=== PATIENT | female | born 1945 | race Caucasian/White ===

== ENCOUNTER 2017-12-14 20:43 | Inpatient (IN) | payer MEDICARE, OTHER ==
[2017-12-14] MEDS ORDERED: Ondansetron 4 MG/2 ML SDV IVPUSH ONE (21:07)
[2017-12-14] MEDS ORDERED: Sodium Chloride 0.9% 10 ML Syringe FLUSH PRN (21:07)
[2017-12-14] MEDS ORDERED: Sodium Chloride 0.9% 2.5 ML Syringe FLUSH PRN (21:07)
[2017-12-14] MEDS ORDERED: Sodium Chloride 0.9% 500 ML IV SCH (21:15)
--- NOTE | 2017-12-14 21:23 | EDM.PDOC ---
<Mallika Castro - Last Filed: 12/14/17 22:08> ED HPI GENERAL MEDICAL PROBLEM - General Chief Complaint: Abdominal Pain Stated Complaint: PAIN IN LOWER RT SIDE Time Seen by Provider: 12/14/17 21:19 Source of Information: Reports: Patient History Limitations: Reports: No Limitations - History of Present Illness INITIAL COMMENTS - FREE TEXT/NARRATIVE: HISTORY AND PHYSICAL: History of present illness: Felisha is a 72-year-old female here with complaint of right lower abdominal pain that started this morning. She states that the pain has progressively gotten worse through the day and rates it as 6 out of 10 just sitting here but movements such as the bumps on the car ride to ED made it worse. Patient states she's felt chills today on and off. She feels nauseous but denies any vomiting, diarrhea, chest pain, shortness of breath. She reports that 2 years ago she had a "leaking appendix "and was admitted for IV antibiotics and never had an appendectomy. She denies any significant past medical history other than hypothyroidism. Review of systems: As per history of present illness and below otherwise all systems reviewed and negative. Past medical history: As per history of present illness and as reviewed below otherwise noncontributory. Surgical history: As per history of present illness and as reviewed below otherwise noncontributory. Social history: No reported history of drug or alcohol abuse. Family history: As per history of present illness and as reviewed below otherwise noncontributory. Physical exam: General: Patient sitting comfortably in no acute distress and nontoxic appearing HEENT: Atraumatic, normocephalic, pupils reactive, negative for conjunctival pallor or scleral icterus, mucous membranes moist, throat clear, neck supple, nontender, trachea midline. No meningeal signs. Lungs: Clear to auscultation, breath sounds equal bilaterally, chest nontender. Heart: S1S2, regular, negative for clicks, rubs, or overt murmur. Abdomen: Significant tenderness to palpation of periumbilical, epigastrum, and right lower quadrant. No rigidity noted. Soft, nondistended. Negative for costovertebral tenderness. Pelvis: Stable nontender. 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: Deferred. Rectal: Deferred. Extremities: Atraumatic, negative for cords or calf pain. Neurovascular unremarkable. Neuro: Awake, alert, oriented. Cranial nerves II through XII unremarkable. Cerebellum unremarkable. Motor and sensory unremarkable throughout. Exam nonfocal. Notes: Diagnostics: CBC, CMP, lipase, UA, urine culture, CT abdomen and pelvis with contrast Therapeutics: 500 mL normal saline IV 4 mg Zofran IV Prescriptions: Impression: Right lower quadrant pain Plan: Signed out to Dr. Man at 2200. Definitive disposition and diagnosis as appropriate pending reevaluation and review of above. Right Lower Abdomen Pain Score (Numeric/FACES): 7 - Related Data Allergies Allergy/AdvReac Type Severity Reaction Status Date / Time pistachio nut Allergy Airway Verified 12/14/17 21:03 Tightness Home Meds: Home Meds Levothyroxine 75 mcg PO ACBREAKFAST 07/19/15 [History] Past Medical History Other HEENT History: wears glasses Cardiovascular History: Reports: Blood Clots/VTE/DVT Other Cardiovascular History: DVT x2, left leg about 2 years ago, off blood thiner now Respiratory History: Reports: None Gastrointestinal History: Reports: GERD, Hiatal Hernia, Other (See Below) Other Gastrointestinal History: recent appendicitis, 3 months ago treated with antibiotics, ok now 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 History: Reports: 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: Musculoskeletal History: Reports: Fracture Neurological History: Reports: Migraines Psychiatric History: Reports: None Endocrine/Metabolic History: Reports: Hypothyroidism, Obesity/BMI 30+ Hematologic History: Reports: Other (See Below) Other Hematologic History: clotting disorder, no anticoagulants x 2 years Immunologic History: Reports: None Oncologic (Cancer) History: Reports: None Dermatologic History: Reports: None - Infectious Disease History Infectious Disease History: Reports: Chicken Pox, Measles, Mumps - Past Surgical History Head Surgeries/Procedures: Reports: None HEENT Surgical History: Reports: None Cardiovascular Surgical History: Reports: Other (See Below) Respiratory Surgical History: Reports: None Female Surgical History: Reports: None Endocrine Surgical History: Reports: None Neurological Surgical History: Reports: None Musculoskeletal Surgical History: Reports: Other (See Below) Oncologic Surgical History: Reports: None Dermatological Surgical History: Reports: None Social & Family History - Family History Family Medical History: Noncontributory Cardiac: Reports: Heart Failure, [place] Endocrine/Metabolic: Reports: Diabetes, Type I Oncologic: Reports: Colon, Lung - Tobacco Use Smoking Status *Q: Never Smoker Second Hand Smoke Exposure: No - Caffeine Use Caffeine Use: Reports: None - Recreational Drug Use Recreational Drug Use: No ED ROS GENERAL - Review of Systems Review Of Systems: ROS reveals no pertinent complaints other than HPI. ED EXAM, GI/ABD - Physical Exam Exam: See Below (see dictation) Course - Vital Signs Last Recorded V/S: Last Vital Signs Temp 36.6 C 12/14/17 21:02 Pulse 93 12/14/17 22:36 Resp 18 12/14/17 22:36 BP 122/66 12/14/17 22:36 Pulse Ox 95 12/14/17 22:36 - Orders/Labs/Meds Orders: Active Orders 24 hr Category Date Time Status Abdomen Pelvis w Cont [CT] Stat Exams 12/14/17 21:16 Taken CULTURE BLOOD [BC] Stat Lab 12/14/17 21:20 Received CULTURE BLOOD [BC] Stat Lab 12/14/17 21:30 Received CULTURE URINE [RM] Stat Lab 12/14/17 22:05 Received Lactated Ringers @ 125 MLS/HR(1,000ml) Med 12/14/17 23:45 Ordered Lactated Ringers [Ringers, Lactated] 1,000 ml IV ASDIRECTED Piperacillin/Tazobactam [Piperacil-Tazobact] 3.375 gm Med 12/14/17 23:46 Ordered Sodium Chloride 0.9% [Normal Saline] 50 ml IV ONETIME Sodium Chloride 0.9% [Normal Saline] 500 ml Med 12/14/17 21:15 Active IV STAT Sodium Chloride 0.9% [Saline Flush] Med 12/14/17 21:07 Active 10 ml FLUSH ASDIRECTED PRN Sodium Chloride 0.9% [Saline Flush] Med 12/14/17 21:07 Active 2.5 ml FLUSH ASDIRECTED PRN Blood Culture x2 Reflex Set [OM.PC] Stat Oth 12/14/17 21:07 Ordered Saline Lock Insert [OM.PC] Stat Oth 12/14/17 21:07 Ordered Medication Orders Sodium Chloride (Normal Saline) 500 mls @ 999 mls/hr IV STAT AISHA Last Admin: 12/14/17 21:50 Dose: 999 mls/hr Lactated Ringer's (Ringers, Lactated) 1,000 mls @ 125 mls/hr IV ASDIRECTED AISHA Piperacillin Sod/Tazobactam (Sod 3.375 gm/ Sodium Chloride) 50 mls @ 100 mls/ hr IV ONETIME ONE Stop: 12/15/17 00:15 Sodium Chloride (Saline Flush) 10 ml FLUSH ASDIRECTED PRN PRN Reason: Keep Vein Open Sodium Chloride (Saline Flush) 2.5 ml FLUSH ASDIRECTED PRN PRN Reason: Keep Vein Open Labs: Laboratory Tests 12/14/17 12/14/17 12/14/17 Range/Units 21:20 21:20 22:05 WBC 10.51 (4.0-11.0) K/uL RBC 4.76 (4.30-5.90) M/uL Hgb 14.9 (12.0-16.0) g/dL Hct 43.1 (36.0-46.0) % MCV 90.5 (80.0-98.0) fL MCH 31.3 (27.0-32.0) pg MCHC 34.6 (31.0-37.0) g/dL RDW Std Deviation 42.9 (28.0-62.0) fl RDW Coeff of Rubi 13 (11.0-15.0) % Plt Count 201 (150-400) K/uL MPV 9.50 (7.40-12.00) fL Neut % (Auto) 87.0 H (48.0-80.0) % Lymph % (Auto) 6.4 L (16.0-40.0) % [place] % (Auto) 5.9 (0.0-15.0) % Eos % (Auto) 0.5 (0.0-7.0) % Baso % (Auto) 0.2 (0.0-1.5) % Neut # (Auto) 9.2 H (1.4-5.7) K/uL Lymph # (Auto) 0.7 (0.6-2.4) K/uL [place] # (Auto) 0.6 (0.0-0.8) K/uL Eos # (Auto) 0.1 (0.0-0.7) K/uL Baso # (Auto) 0.0 (0.0-0.1) K/uL Nucleated RBC % 0.0 /100WBC Nucleated RBCs # 0 K/uL Sodium 136 (136-145) mmol/L Potassium 3.8 (3.5-5.1) mmol/L Chloride 102 (98-107) mmol/L Carbon Dioxide 25.4 (21.0-32.0) mmol/L BUN 12 (7.0-18.0) mg/dL Creatinine 0.8 (0.6-1.0) mg/dL Est Cr Clr Drug Dosing 60.38 mL/min Estimated GFR (MDRD) > 60.0 ml/min Glucose 150 H (74-106) mg/dL Calcium 9.0 (8.5-10.1) mg/dL Total Bilirubin 1.1 H (0.2-1.0) mg/dL AST 14 L (15-37) IU/L ALT 17 (14-63) IU/L Alkaline Phosphatase 56 (46-116) U/L Total Protein 6.9 (6.4-8.2) g/dL Albumin 3.5 (3.4-5.0) g/dL Globulin 3.4 (2.0-3.5) g/dL Albumin/Globulin Ratio 1.0 L (1.3-2.8) Lipase 100 (73-393) U/L Urine Color YELLOW Urine Appearance CLEAR Urine pH 6.0 (5.0-8.0) Ur Specific [place] 1.025 (1.001-1.035) Urine Protein NEGATIVE (NEGATIVE) mg/dL Urine Glucose (UA) NEGATIVE (NEGATIVE) mg/dL Urine Ketones TRACE H (NEGATIVE) mg/dL Urine Occult Blood TRACE-INTACT (NEGATIVE) Urine Nitrite NEGATIVE (NEGATIVE) Urine Bilirubin NEGATIVE (NEGATIVE) Urine Urobilinogen 0.2 (<2.0) EU/dL Ur Leukocyte Esterase SMALL (NEGATIVE) Urine RBC NONE SEEN (0-2/HPF) Urine WBC 4-6 (0-5/HPF) Ur Epithelial Cells FEW (NONE-FEW) Urine Bacteria FEW (NEGATIVE) Urine Mucus MODERATE (NONE-MOD) Meds: Medications Generic Name Dose Route Start Last Admin Trade Name Freq PRN Reason Stop Dose Admin Sodium Chloride 500 mls @ 999 mls/hr 12/14/17 21:15 12/14/17 21:50 Normal Saline IV 999 mls/hr STAT AISHA Administration Lactated Ringer's 1,000 mls @ 125 mls/hr 12/14/17 23:45 Ringers, Lactated IV ASDIRECTED AISHA Piperacillin Sod/Tazobactam 50 mls @ 100 mls/hr 12/14/17 23:46 Sod 3.375 gm/ Sodium Chloride IV 12/15/17 00:15 ONETIME ONE Sodium Chloride 10 ml 12/14/17 21:07 Saline Flush FLUSH ASDIRECTED PRN Keep Vein Open Sodium Chloride 2.5 ml 12/14/17 21:07 Saline Flush FLUSH ASDIRECTED PRN Keep Vein Open Discontinued Medications Generic Name Dose Route Start Last Admin Trade Name Mikey PRN Reason Stop Dose Admin Iopamidol 100 ml 12/14/17 22:52 12/14/17 22:53 Isovue-370 (76%) IVPUSH 12/14/17 22:53 100 ml ONETIME ONE Administration Morphine Sulfate 4 mg 12/14/17 22:25 12/14/17 22:33 Morphine IVPUSH 12/14/17 22:26 4 mg ONETIME ONE Administration Ondansetron HCl 4 mg 12/14/17 21:07 12/14/17 21:50 Zofran IVPUSH 12/14/17 21:08 4 mg ONETIME ONE Administration Departure - Departure Time of Disposition: 22:10 Disposition: Refer to Observation Condition: Good Clinical Impression: Right lower quadrant abdominal pain Acute appendicitis Qualifiers: Acute appendicitis type: unspecified acute appendicitis type Qualified Code(s) : K35.80 - Unspecified acute appendicitis - Discharge Information Referrals: PCP,None [Primary Care Provider] - Forms: ED Department Discharge - My Orders Last 24 Hours: My Active Orders 12/14/17 23:45 Lactated Ringers @ 125 MLS/HR(1,000ml) Lactated Ringers [Ringers, Lactated] 1, 000 ml IV ASDIRECTED 12/14/17 23:46 Piperacillin/Tazobactam [Piperacil-Tazobact] 3.375 gm Sodium Chloride 0.9% [ Normal Saline] 50 ml IV ONETIME - Assessment/Plan Last 24 Hours: My Active Orders 12/14/17 23:45 Lactated Ringers @ 125 MLS/HR(1,000ml) Lactated Ringers [Ringers, Lactated] 1, 000 ml IV ASDIRECTED 12/14/17 23:46 Piperacillin/Tazobactam [Piperacil-Tazobact] 3.375 gm Sodium Chloride 0.9% [ Normal Saline] 50 ml IV ONETIME <Lary Man - Last Filed: 12/14/17 23:50> ED HPI GENERAL MEDICAL PROBLEM - History of Present Illness INITIAL COMMENTS - FREE TEXT/NARRATIVE: This is Dr. Man dictating an addendum note as I assumed care of this case. All labs have been reviewed and the CT scan report has been discussed with the patient and his significant other at bedside. The tele- radiologist has contacted me and confirms there is appendicitis without rupture or phlegmon. This case was discussed with Dr. Steward at 2340pm and she will come in to see the patient and discussed surgery. The patient reiterates that she has no significant medical problems. I will do her preop EKG and hang lactated Ringer' s at 1 25 mL per hour as maintenance fluid and a dose of Zosyn per Dr. Steward's request. I did give the patient some morphine for pain earlier and she is feeling better. I will continue to order any testing as requested by the surgeon for preop. Impression: Acute appendicitis ED ROS GENERAL - Review of Systems Review Of Systems: ROS reveals no pertinent complaints other than HPI. Departure - Departure Time of Disposition: 23:49 Condition: Good
[2017-12-14 22:00] LABS: CHLORIDE,CL 102 mmol/L (98-107); SODIUM,NA 136 mmol/L (136-145)
[2017-12-14] MEDS ORDERED: Morphine 2 MG/ML Syringe IVPUSH ONE (22:25)
[2017-12-14] MEDS ORDERED: Iopamidol 755 Mg/ML 100 ML Bottle IVPUSH ONE (22:52)
[2017-12-14] MEDS ORDERED: Piperacillin/Tazobactam 3.375 GM in Sodium Chloride 0.9% 50 ML IV ONE (23:46)
[2017-12-14] MEDS: Lactated Ringers 1,000 ML IV SCH (23:52)
[2017-12-15] MEDS ORDERED: Sodium Chloride 0.9% 10 ML Syringe FLUSH PRN (00:25)
[2017-12-15] MEDS ORDERED: diphenhydrAMINE 50 MG/ML SDV IVPUSH PRN (00:25)
[2017-12-15] MEDS ORDERED: Sodium Chloride 0.9% 2.5 ML Syringe FLUSH PRN (00:25)
[2017-12-15] MEDS ORDERED: HYDROmorphone 2 MG/ML SDV IVPUSH PRN (00:25)
[2017-12-15] MEDS ORDERED: Lactated Ringers 1,000 ML IV SCH (00:30)
--- NOTE | 2017-12-15 00:36 | PCM.HP ---
H&P History of Present Illness - General Date of Service: 12/15/17 Admit Problem/Dx: Admission Diagnosis/Problem Admission Diagnosis/Problem Acute appendicitis Source of Information: Patient History Limitations: Reports: No Limitations - History of Present Illness Initial Comments - Free Text/Narative: Patient is a 72 year old female who presents with RLQ pain. She had perforated appendicitis two years ago which was treated successfully with IV antibiotics. She was followed up with a colonoscopy which was normal other than diverticulosis. She was not offered an interval appendectomy. She developed lower abdominal pain similar to her previous appendicitis episode today. She presented right away to the ER because she was concerned this was appendicitis again. Her WBC was 10 but she had a left shift. Her CT abdomen showed a dilated appendix with a proximal appendicolith consistent with non-ruptured acute appendicitis. She has otherwise been healthy. Right Lower Abdomen Pain Score (Numeric/FACES): 7 - Related Data Allergies/Adverse Reactions: Allergies Allergy/AdvReac Type Severity Reaction Status Date / Time pistachio nut Allergy Airway Verified 12/14/17 21:03 Tightness Home Medications: Home Meds Levothyroxine 75 mcg PO ACBREAKFAST 07/19/15 [History] Past Medical History Other HEENT History: wears glasses Cardiovascular History: Reports: Blood Clots/VTE/DVT Other Cardiovascular History: DVT x2, left leg about 2 years ago, off blood thiner now Respiratory History: Reports: None Gastrointestinal History: Reports: GERD, Hiatal Hernia, Other (See Below) Other Gastrointestinal History: recent appendicitis, 3 months ago treated with antibiotics, ok now 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: Musculoskeletal History: Reports: Fracture Neurological History: Reports: Migraines Psychiatric History: Reports: None Endocrine/Metabolic History: Reports: Hypothyroidism, Obesity/BMI 30+ Hematologic History: Reports: Other (See Below) Other Hematologic History: clotting disorder, no anticoagulants x 2 years Immunologic History: Reports: None Oncologic (Cancer) History: Reports: None Dermatologic History: Reports: None - Infectious Disease History Infectious Disease History: Reports: Chicken Pox, Measles, Mumps - Past Surgical History Head Surgeries/Procedures: Reports: None HEENT Surgical History: Reports: None Cardiovascular Surgical History: Reports: Other (See Below) Respiratory Surgical History: Reports: None Female Surgical History: Reports: None Endocrine Surgical History: Reports: None Neurological Surgical History: Reports: None Musculoskeletal Surgical History: Reports: Other (See Below) Oncologic Surgical History: Reports: None Dermatological Surgical History: Reports: None Social & Family History - Family History Family Medical History: Noncontributory Cardiac: Reports: Heart Failure, [place] Endocrine/Metabolic: Reports: Diabetes, Type I Oncologic: Reports: Colon, Lung - Tobacco Use Smoking Status *Q: Never Smoker Second Hand Smoke Exposure: No - Caffeine Use Caffeine Use: Reports: None - Recreational Drug Use Recreational Drug Use: No H&P Review of Systems - Review of Systems: Review Of Systems: ROS reveals no pertinent complaints other than HPI. Exam - Exam Exam: See Below - Vital Signs Vital Signs: Last Vital Signs Temp 36.6 C 12/14/17 21:02 Pulse 93 12/14/17 22:36 Resp 18 12/14/17 22:36 BP 122/66 12/14/17 22:36 Pulse Ox 95 12/14/17 22:36 Weight: 94.7 kg - Exam General: Alert, Oriented HEENT: Conjunctiva Clear, Mucosa Moist & [place], Posterior Pharynx Clear Neck: Trachea Midline Lungs: Clear to Auscultation, Normal Respiratory Effort Cardiovascular: Regular Rate, Systolic Murmur GI/Abdominal Exam: Soft, Distended, Guarding (RLQ), Rebound (Lower abdomen ), Tender (lower abdomen ). No: Rigid - Patient Data Lab Results Last 24 hrs: Laboratory Results - last 24 hr 12/14/17 12/14/17 12/14/17 Range/Units 21:20 21:20 22:05 WBC 10.51 (4.0-11.0) K/uL RBC 4.76 (4.30-5.90) M/uL Hgb 14.9 (12.0-16.0) g/dL Hct 43.1 (36.0-46.0) % MCV 90.5 (80.0-98.0) fL MCH 31.3 (27.0-32.0) pg MCHC 34.6 (31.0-37.0) g/dL RDW Std Deviation 42.9 (28.0-62.0) fl RDW Coeff of Rubi 13 (11.0-15.0) % Plt Count 201 (150-400) K/uL MPV 9.50 (7.40-12.00) fL Neut % (Auto) 87.0 H (48.0-80.0) % Lymph % (Auto) 6.4 L (16.0-40.0) % [place] % (Auto) 5.9 (0.0-15.0) % Eos % (Auto) 0.5 (0.0-7.0) % Baso % (Auto) 0.2 (0.0-1.5) % Neut # (Auto) 9.2 H (1.4-5.7) K/uL Lymph # (Auto) 0.7 (0.6-2.4) K/uL [place] # (Auto) 0.6 (0.0-0.8) K/uL Eos # (Auto) 0.1 (0.0-0.7) K/uL Baso # (Auto) 0.0 (0.0-0.1) K/uL Nucleated RBC % 0.0 /100WBC Nucleated RBCs # 0 K/uL Sodium 136 (136-145) mmol/L Potassium 3.8 (3.5-5.1) mmol/L Chloride 102 (98-107) mmol/L Carbon Dioxide 25.4 (21.0-32.0) mmol/L BUN 12 (7.0-18.0) mg/dL Creatinine 0.8 (0.6-1.0) mg/dL Est Cr Clr Drug Dosing 60.38 mL/min Estimated GFR (MDRD) > 60.0 ml/min Glucose 150 H (74-106) mg/dL Calcium 9.0 (8.5-10.1) mg/dL Total Bilirubin 1.1 H (0.2-1.0) mg/dL AST 14 L (15-37) IU/L ALT 17 (14-63) IU/L Alkaline Phosphatase 56 (46-116) U/L Total Protein 6.9 (6.4-8.2) g/dL Albumin 3.5 (3.4-5.0) g/dL Globulin 3.4 (2.0-3.5) g/dL Albumin/Globulin Ratio 1.0 L (1.3-2.8) Lipase 100 (73-393) U/L Urine Color YELLOW Urine Appearance CLEAR Urine pH 6.0 (5.0-8.0) Ur Specific [place] 1.025 (1.001-1.035) Urine Protein NEGATIVE (NEGATIVE) mg/dL Urine Glucose (UA) NEGATIVE (NEGATIVE) mg/dL Urine Ketones TRACE H (NEGATIVE) mg/dL Urine Occult Blood TRACE-INTACT (NEGATIVE) Urine Nitrite NEGATIVE (NEGATIVE) Urine Bilirubin NEGATIVE (NEGATIVE) Urine Urobilinogen 0.2 (<2.0) EU/dL Ur Leukocyte Esterase SMALL (NEGATIVE) Urine RBC NONE SEEN (0-2/HPF) Urine WBC 4-6 (0-5/HPF) Ur Epithelial Cells FEW (NONE-FEW) Urine Bacteria FEW (NEGATIVE) Urine Mucus MODERATE (NONE-MOD) Result Diagrams: 12/14/17 21:20 12/14/17 21:20 - Problem List (1) Acute appendicitis SNOMED Code(s): 96650205 ICD Code: K35.80 - UNSPECIFIED ACUTE APPENDICITIS Status: Acute Current Visit: Yes Qualifiers: Acute appendicitis type: unspecified acute appendicitis type Qualified Code (s): K35.80 - Unspecified acute appendicitis Problem List Initiated/Reviewed/Updated: Yes Orders Last 24hrs: Active Orders 24 hr Category Date Time Status Patient Status [ADT] Routine ADT 12/15/17 00:25 Ordered EKG Documentation Completion [RC] STAT Care 12/14/17 23:51 Inactive EKG Documentation Completion [RC] STAT Care 12/14/17 23:56 Active Oxygen Therapy [RC] PRN Care 12/15/17 00:25 Ordered Up ad Hayley [RC] ASDIRECTED Care 12/15/17 00:25 Ordered Vital Signs [RC] PER UNIT ROUTINE Care 12/15/17 00:25 Ordered Nothing Per Oral Diet [DIET] Diet 12/15/17 Breakfast Ordered Abdomen Pelvis w Cont [CT] Stat Exams 12/14/17 21:16 Taken BASIC METABOLIC PANEL,BMP [CHEM] AM Lab 12/15/17 05:11 Ordered CBC W/O DIFF,HEMOGRAM [HEME] AM Lab 12/15/17 05:11 Ordered CULTURE BLOOD [BC] Stat Lab 12/14/17 21:20 Received CULTURE BLOOD [BC] Stat Lab 12/14/17 21:30 Received CULTURE URINE [RM] Stat Lab 12/14/17 22:05 Received HYDROmorphone [Dilaudid] Med 12/15/17 00:25 Ordered 0.5 mg IVPUSH Q1H PRN Lactated Ringers @ 125 MLS/HR(1000ml) Med 12/15/17 00:30 Ordered Lactated Ringers [Ringers, Lactated] 1,000 ml IV ASDIRECTED Lactated Ringers [Ringers, Lactated] 1,000 ml Med 12/14/17 23:45 Active IV ASDIRECTED Ondansetron [Zofran] Med 12/15/17 00:25 Ordered 4 mg IVPUSH Q6H PRN Piperacillin/Tazobactam [Piperacil-Tazobact] 3.375 gm Med 12/15/17 08:00 Ordered Sodium Chloride 0.9% [Normal Saline] 50 ml IV Q8H Sodium Chloride 0.9% [Normal Saline] 500 ml Med 12/14/17 21:15 Active IV STAT Sodium Chloride 0.9% [Saline Flush] Med 12/14/17 21:07 Active 10 ml FLUSH ASDIRECTED PRN Sodium Chloride 0.9% [Saline Flush] Med 12/15/17 00:25 Ordered 10 ml FLUSH ASDIRECTED PRN Sodium Chloride 0.9% [Saline Flush] Med 12/14/17 21:07 Active 2.5 ml FLUSH ASDIRECTED PRN Sodium Chloride 0.9% [Saline Flush] Med 12/15/17 00:25 Ordered 2.5 ml FLUSH ASDIRECTED PRN diphenhydrAMINE [Benadryl] Med 12/15/17 00:25 Ordered 25 mg IVPUSH Q4H PRN Blood Culture x2 Reflex Set [OM.PC] Stat Ot 12/14/17 21:07 Ordered Peripheral IV Insertion Adult [OM.PC] Urgent Oth 12/15/17 00:25 Ordered Saline Lock Insert [OM.PC] Stat Ot 12/14/17 21:07 Ordered Resuscitation Status Routine Resus Stat 12/15/17 00:25 Ordered Medication Orders Diphenhydramine HCl (Benadryl) 25 mg IVPUSH Q4H PRN PRN Reason: Itching Hydromorphone HCl (Dilaudid) 0.5 mg IVPUSH Q1H PRN PRN Reason: Pain (severe 7-10) Sodium Chloride (Normal Saline) 500 mls @ 999 mls/hr IV STAT AISHA Last Admin: 12/14/17 21:50 Dose: 999 mls/hr Lactated Ringer's (Ringers, Lactated) 1,000 mls @ 125 mls/hr IV ASDIRECTED [facility] Last Admin: 12/14/17 23:52 Dose: 125 mls/hr Lactated Ringer's (Ringers, Lactated) 1,000 mls @ 125 mls/hr IV ASDIRECTED [facility] Piperacillin Sod/Tazobactam (Sod 3.375 gm/ Sodium Chloride) 50 mls @ 100 mls/ hr IV Q8H AISHA Ondansetron HCl (Zofran) 4 mg IVPUSH Q6H PRN PRN Reason: Nausea/Vomiting Sodium Chloride (Saline Flush) 10 ml FLUSH ASDIRECTED PRN PRN Reason: Keep Vein Open Sodium Chloride (Saline Flush) 2.5 ml FLUSH ASDIRECTED PRN PRN Reason: Keep Vein Open Sodium Chloride (Saline Flush) 10 ml FLUSH ASDIRECTED PRN PRN Reason: Keep Vein Open Sodium Chloride (Saline Flush) 2.5 ml FLUSH ASDIRECTED PRN PRN Reason: Keep Vein Open Assessment/Plan Comment:: Will admit patient for IVF resucitation and IV antibiotics. Plan to take out her appendix right away in the morning. We discussed appendicitis and the treatment which at this time is now surgery. I warned her that given her previous episode of appendicitis she could have significant scarring that may make this a difficult case. I will attempt it laparoscopically but should I be unable to perform it safely I will convert to open. We discussed the risks including bleeding, infection, or damage to surrounding structures. She verbalized understanding and wishes to proceed.
[2017-12-15] MEDS: Piperacillin/Tazobactam 3.375 GM in Sodium Chloride 0.9% 50 ML IV SCH ×2 (07:30→18:20)
[2017-12-15] MEDS: Lactated Ringers 1,000 ML IV SCH ×2 (07:32→18:20)
--- NOTE | 2017-12-15 07:40 | PCM.SN ---
- Free Text/Narrative Note: Patient remained stable overnight. Subjectively, she feels like her abdominal pain is slightly improved. She has been recieving IV pain medications. Vitals are stable. On physical exam she is still extremely tender in the lower abdomen with rebound. She also feels slightly distended. Will take her for a lap possible open appendectomy this morning.
[2017-12-15] MEDS ORDERED: Bupivacaine 0.5% 30 ML SDV ONE (07:43)
[2017-12-15] MEDS ORDERED: ceFAZolin 1 GM Vial ONE (07:43)
--- NOTE | 2017-12-15 08:02 | PCM.PREANE ---
Preanesthetic Assessment - Procedure Proposed Procedure: appendectomy - laparoscopic vs open - Anesthesia/Transfusion/Family Hx Anesthesia History: Prior Anesthesia Without Reaction Family History of Anesthesia Reaction: No Transfusion History: No Prior Transfusion(s) Intubation History: Unknown - Review of Systems General: Other (right side abdominal pain) Pulmonary: No Symptoms Cardiovascular: No Symptoms Gastrointestinal: Abdominal Pain, Nausea (last pm but improved with Zofran) Neurological: No Symptoms Other: Reports: Thyroid Problems (hypothyroid on synthroid) - Physical Assessment NPO Status Date: 12/14/17 NPO Status Time: 16:00 O2 Sat by Pulse Oximetry: 90 Respiratory Rate: 15 Vital Signs: Last Vital Signs Temp 99.2 F 12/15/17 05:00 Pulse 87 12/15/17 05:00 Resp 15 12/15/17 05:00 BP 109/55 L 12/15/17 06:25 Pulse Ox 90 L 12/15/17 05:00 Height: 5 ft 5 in Weight: 195 lb ASA Class: 2E Mental Status: Alert & Oriented x3 Airway Class: Mallampati = 1 Dentition: Reports: Normal Dentition Thyro-Mental Finger Breadths: 2 Mouth Opening Finger Breadths: 3 ROM/Head Extension: Full Lungs: Clear to Auscultation, Normal Respiratory Effort Cardiovascular: Regular Rhythm, No Murmurs, Tachycardia - Lab Values: Laboratory Last Values WBC 10.51 K/uL (4.0-11.0) 12/14/17 21:20 RBC 4.76 M/uL (4.30-5.90) 12/14/17 21:20 Hgb 14.9 g/dL (12.0-16.0) 12/14/17 21:20 Hct 43.1 % (36.0-46.0) 12/14/17 21:20 MCV 90.5 fL (80.0-98.0) 12/14/17 21:20 MCH 31.3 pg (27.0-32.0) 12/14/17 21:20 MCHC 34.6 g/dL (31.0-37.0) 12/14/17 21:20 RDW Std Deviation 42.9 fl (28.0-62.0) 12/14/17 21:20 RDW Coeff of Rubi 13 % (11.0-15.0) 12/14/17 21:20 Plt Count 201 K/uL (150-400) 12/14/17 21:20 MPV 9.50 fL (7.40-12.00) 12/14/17 21:20 Neut % (Auto) 87.0 % (48.0-80.0) H 12/14/17 21:20 Lymph % (Auto) 6.4 % (16.0-40.0) L 12/14/17 21:20 Swisher % (Auto) 5.9 % (0.0-15.0) 12/14/17 21:20 Eos % (Auto) 0.5 % (0.0-7.0) 12/14/17 21:20 Baso % (Auto) 0.2 % (0.0-1.5) 12/14/17 21:20 Neut # (Auto) 9.2 K/uL (1.4-5.7) H 12/14/17 21:20 Lymph # (Auto) 0.7 K/uL (0.6-2.4) 12/14/17 21:20 Swisher # (Auto) 0.6 K/uL (0.0-0.8) 12/14/17 21:20 Eos # (Auto) 0.1 K/uL (0.0-0.7) 12/14/17 21:20 Baso # (Auto) 0.0 K/uL (0.0-0.1) 12/14/17 21:20 Nucleated RBC % 0.0 /100WBC 12/14/17 21:20 Nucleated RBCs # 0 K/uL 12/14/17 21:20 Sodium 136 mmol/L (136-145) 12/14/17 21:20 Potassium 3.8 mmol/L (3.5-5.1) 12/14/17 21:20 Chloride 102 mmol/L (98-107) 12/14/17 21:20 Carbon Dioxide 25.4 mmol/L (21.0-32.0) 12/14/17 21:20 BUN 12 mg/dL (7.0-18.0) 12/14/17 21:20 Creatinine 0.8 mg/dL (0.6-1.0) 12/14/17 21:20 Est Cr Clr Drug Dosing 60.38 mL/min 09/20/18 21:20 Estimated GFR (MDRD) > 60.0 ml/min 12/14/17 21:20 Glucose 150 mg/dL (74-106) H 12/14/17 21:20 Calcium 9.0 mg/dL (8.5-10.1) 12/14/17 21:20 Total Bilirubin 1.1 mg/dL (0.2-1.0) H 12/14/17 21:20 AST 14 IU/L (15-37) L 12/14/17 21:20 ALT 17 IU/L (14-63) 12/14/17 21:20 Alkaline Phosphatase 56 U/L (46-116) 12/14/17 21:20 Total Protein 6.9 g/dL (6.4-8.2) 12/14/17 21:20 Albumin 3.5 g/dL (3.4-5.0) 12/14/17 21:20 Globulin 3.4 g/dL (2.0-3.5) 12/14/17 21:20 Albumin/Globulin Ratio 1.0 (1.3-2.8) L 12/14/17 21:20 Lipase 100 U/L (73-393) 12/14/17 21:20 Urine Color YELLOW 12/14/17 22:05 Urine Appearance CLEAR 12/14/17 22:05 Urine pH 6.0 (5.0-8.0) 12/14/17 22:05 Ur Specific Amber 1.025 (1.001-1.035) 12/14/17 22:05 Urine Protein NEGATIVE mg/dL (NEGATIVE) 12/14/17 22:05 Urine Glucose (UA) NEGATIVE mg/dL (NEGATIVE) 12/14/17 22:05 Urine Ketones TRACE mg/dL (NEGATIVE) H 12/14/17 22:05 Urine Occult Blood TRACE-INTACT (NEGATIVE) 12/14/17 22:05 Urine Nitrite NEGATIVE (NEGATIVE) 12/14/17 22:05 Urine Bilirubin NEGATIVE (NEGATIVE) 12/14/17 22:05 Urine Urobilinogen 0.2 EU/dL (<2.0) 12/14/17 22:05 Ur Leukocyte Esterase SMALL (NEGATIVE) 12/14/17 22:05 Urine RBC NONE SEEN (0-2/HPF) 12/14/17 22:05 Urine WBC 4-6 (0-5/HPF) 12/14/17 22:05 Ur Epithelial Cells FEW (NONE-FEW) 12/14/17 22:05 Urine Bacteria FEW (NEGATIVE) 12/14/17 22:05 Urine Mucus MODERATE (NONE-MOD) 12/14/17 22:05 - Allergies Allergies/Adverse Reactions: Allergies Allergy/AdvReac Type Severity Reaction Status Date / Time pistachio nut Allergy Airway Verified 12/14/17 21:03 Tightness - Blood Blood Available: No Product(s) Available: None - Anesthesia Plan Pre-Op Medication Ordered: None - Acknowledgements Anesthesia Type Planned: General Anesthesia Pt an Appropriate Candidate for the Planned Anesthesia: Yes Alternatives and Risks of Anesthesia Discussed w Pt/Guardian: Yes Pt/Guardian Understands and Agrees with Anesthesia Plan: Yes Additional Comments: present PreAnesthesia Questionnaire HEENT History: Reports: Impaired Vision Other HEENT History: wears glasses Cardiovascular History: Reports: Blood Clots/VTE/DVT Other Cardiovascular History: DVT x2, left leg about 2 years ago, off blood thiner now Respiratory History: Reports: None Gastrointestinal History: Reports: GERD, Hiatal Hernia, Other (See Below) Other Gastrointestinal History: recent appendicitis, 3 months ago treated with antibiotics, ok now 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 History: Reports: None 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 [employer]ENDER History: Reports: Musculoskeletal History: Reports: Fracture Neurological History: Reports: Migraines Psychiatric History: Reports: None Endocrine/Metabolic History: Reports: Hypothyroidism, Obesity/BMI 30+ Hematologic History: Reports: Other (See Below) Other Hematologic History: clotting disorder, no anticoagulants x 2 years Immunologic History: Reports: None Oncologic (Cancer) History: Reports: None Dermatologic History: Reports: None - Infectious Disease History Infectious Disease History: Reports: Chicken Pox, Measles, Mumps - Past Surgical History Head Surgeries/Procedures: Reports: None HEENT Surgical History: Reports: None Cardiovascular Surgical History: Reports: Other (See Below) Respiratory Surgical History: Reports: None Female Surgical History: Reports: None Endocrine Surgical History: Reports: None Neurological Surgical History: Reports: None Musculoskeletal Surgical History: Reports: Other (See Below) Oncologic Surgical History: Reports: None Dermatological Surgical History: Reports: None - SUBSTANCE USE Smoking Status *Q: Never Smoker Tobacco Use Within Last Twelve Months: No Second Hand Smoke Exposure: No Recreational Drug Use History: No - HOME MEDS Home Medications: Home Meds Levothyroxine 75 mcg PO ACBREAKFAST 04/24/16 [History] - CURRENT (IN HOUSE) MEDS Current Meds: Current Medications Diphenhydramine HCl (Benadryl) 25 mg IVPUSH Q4H PRN PRN Reason: Itching Hydromorphone HCl (Dilaudid) 0.5 mg IVPUSH Q1H PRN PRN Reason: Pain (severe 7-10) Last Admin: 12/15/17 06:33 Dose: 0.5 mg Sodium Chloride (Normal Saline) 500 mls @ 999 mls/hr IV STAT AISHA Last Admin: 12/14/17 21:50 Dose: 999 mls/hr Lactated Ringer's (Ringers, Lactated) 1,000 mls @ 125 mls/hr IV ASDIRECTED AISHA Last Admin: 12/15/17 07:32 Dose: 125 mls/hr Lactated Ringer's (Ringers, Lactated) 1,000 mls @ 125 mls/hr IV ASDIRECTED AISHA Piperacillin Sod/Tazobactam (Sod 3.375 gm/ Sodium Chloride) 50 mls @ 100 mls/ hr IV Q8H AISHA Last Admin: 12/15/17 07:30 Dose: 100 mls/hr Ondansetron HCl (Zofran) 4 mg IVPUSH Q6H PRN PRN Reason: Nausea/Vomiting Sodium Chloride (Saline Flush) 10 ml FLUSH ASDIRECTED PRN PRN Reason: Keep Vein Open Sodium Chloride (Saline Flush) 2.5 ml FLUSH ASDIRECTED PRN PRN Reason: Keep Vein Open Sodium Chloride (Saline Flush) 10 ml FLUSH ASDIRECTED PRN PRN Reason: Keep Vein Open Sodium Chloride (Saline Flush) 2.5 ml FLUSH ASDIRECTED PRN PRN Reason: Keep Vein Open Discontinued Medications Bupivacaine HCl (Marcaine 0.5%) Confirm Administered Dose 30 ml .ROUTE .STK-MED ONE Stop: 12/15/17 07:44 Cefazolin Sodium (Ancef) Confirm Administered Dose 1 gm .ROUTE .STK-MED ONE Stop: 12/15/17 07:44 Piperacillin Sod/Tazobactam (Sod 3.375 gm/ Sodium Chloride) 50 mls @ 100 mls/ hr IV ONETIME ONE Stop: 12/15/17 00:15 Last Admin: 12/14/17 23:53 Dose: 100 mls/hr Iopamidol (Isovue-370 (76%)) 100 ml IVPUSH ONETIME ONE Stop: 12/14/17 22:53 Last Admin: 12/14/17 22:53 Dose: 100 ml Morphine Sulfate (Morphine) 4 mg IVPUSH ONETIME ONE Stop: 12/14/17 22:26 Last Admin: 12/14/17 22:33 Dose: 4 mg Ondansetron HCl (Zofran) 4 mg IVPUSH ONETIME ONE Stop: 12/14/17 21:08 Last Admin: 12/14/17 21:50 Dose: 4 mg
[2017-12-15] MEDS ORDERED: Propofol 200 MG/20 ML SDV ONE (08:59)
[2017-12-15] MEDS ORDERED: Midazolam 1 MG/ML 2 ML SDV ONE (08:59)
[2017-12-15] MEDS ORDERED: fentaNYL 100 MCG/2 ML SDV ONE ×2 (08:59→10:50)
[2017-12-15] MEDS ORDERED: Succinylcholine 200 MG/10 ML MDV ONE (09:00)
[2017-12-15] MEDS ORDERED: Ondansetron 4 MG/2 ML SDV ONE (09:00)
[2017-12-15] MEDS ORDERED: Rocuronium 10 MG/ML 10 ML Syringe ONE (09:00)
[2017-12-15] MEDS ORDERED: Dexamethasone 4 MG/ML 5 ML MDV ONE (09:00)
[2017-12-15] MEDS ORDERED: Lidocaine 2% 5 ML SDV ONE (09:02)
[2017-12-15] MEDS ORDERED: Sugammadex Sodium 200 MG/2 ML VIAL ONE ×2 (09:31→12:19)
[2017-12-15] MEDS ORDERED: Phenylephrine/Normal Saline 100 MCG/ML 10 ML Syringe ONE (10:19)
[2017-12-15] MEDS ORDERED: Ketorolac 30 MG/ML SDV ONE (10:43)
[2017-12-15] MEDS ORDERED: HYDROmorphone 2 MG/ML SDV ONE (10:50)
--- NOTE | 2017-12-15 12:42 | PCM.OPNOTE ---
- General Post-Op/Procedure Note Date of Surgery/Procedure: 12/15/17 Operative Procedure(s): Laparoscopic possible open appendectomy Findings: Appendix that was necrosed off of the cecum and incased in a rind of thickened and inflamed french-appendicile and terminal ileal fat. There was some intra- abdominal adhesions in the RLQ. There was purulent peritonitis. Pre Op Diagnosis: Appendicitis Post-Op Diagnosis: Ruptured, necrotic appendicitis with purulent peritonitis Anesthesia Technique: General ET Tube Primary Surgeon: Janay Steward Secondary Surgeon: Roberto Ortiz Pathology: appendix Fluid Replacement, Intraop: 2,000 Output, Urine Amount: 200 EBL in mLs: 100 Surgical Drain/Tube Type: Sae Drain Condition: Fair
--- NOTE | 2017-12-15 12:57 | CT ---
EXAM DATE: 12/14/17 PATIENT'S AGE: 72 Patient: JULIENNE MENDIETA Facility: [place], [place] Site . Site : [id number] Study: CT Abdomen/Pelvis [id number]/[id number] 11:18:05 PM Ordering Physician: Doctor Pruitt Final Report: INDICATION: Right lower quadrant pain, nausea TECHNIQUE: CT abdomen and pelvis acquired with 100 cc Isovue 370 IV contrast. COMPARISON: July 19, 2015 FINDINGS: Lower chest: Unremarkable. Liver: Hepatic steatosis. Spleen: Unremarkable. Pancreas: Unremarkable. Gallbladder and bile ducts: Cholelithiasis. Adrenal glands: Unremarkable. Kidneys: Unremarkable. GI tract: The appendix measures up to 1.5 cm in diameter. There is periappendiceal fat stranding. No extraluminal air or abscess. There is and appendicoliths in the proximal portion of the appendix. Vascular structures: There is an infrarenal IVC filter. Mild atherosclerotic calcifications. Lymph nodes: Unremarkable. Miscellaneous: There is a small fat containing umbilical hernia. No free air or significant free fluid. Pelvic Organs: 2.4 centimeter calcified uterine fibroid. Bones: Unremarkable for age. IMPRESSION: Acute appendicitis without evidence for perforation or abscess formation. These findings were discussed with Dr. Man at 11:32 p.m. on December 14, 2017. Cholelithiasis. Hepatic steatosis. Small fat containing umbilical hernia. Calcified uterine fibroid. Infrarenal IVC filter in place. Please note that all CT scans at this facility use dose modulation, iterative reconstruction, and/or weight-based dosing when appropriate to reduce radiation dose to as low as reasonably achievable. Dictated by Yas Frey MD @ Dec 14 2017 11:33PM (Electronic Signature) Report Signed by Proxy. [facility]ATR[facility] CENTERBlake
[2017-12-15] MEDS ORDERED: Morphine PF 30 MG/30 ML PCA Vial IV STA (12:58)
[2017-12-15 13:43] LABS: CHLORIDE,CL 102 mmol/L (98-107); SODIUM,NA 135 mmol/L (136-145)
[2017-12-15] MEDS ORDERED: Magnesium Sulfate/Water 2 GM in Premix Bag 1 BAG IV ONE (14:30)
--- NOTE | 2017-12-15 16:08 | PCM.POSTAN ---
POST ANESTHESIA ASSESSMENT - MENTAL STATUS Mental Status: Alert, Oriented - VITAL SIGNS Pulse Rate: 80 SaO2: 97 Blood Pressure: 115/65 - RESPIRATORY Respiratory Status: Respiratory Rate WNL, Airway Patent, O2 Saturation Stable - CARDIOVASCULAR CV Status: Pulse Rate WNL, Blood Pressure Stable - GASTROINTESTINAL GI Status: No Symptoms - PAIN Pain Score: 0 - POST OP HYDRATION Hydration Status: Adequate & Stable
--- NOTE | 2017-12-15 16:25 | PCM.SURGPN ---
- General Info Date of Service: 12/15/17 Date of Surgery/Procedure: 12/15/17 POD#: 0 Functional Status: Reports: Pain Controlled, Other (Sore in RLQ but pain is overall better. Vitals have been stable in PACU. Just arrived at the ICU. NO need for pressors after case. NG with minimal out. Drain with serosanguinous output. ) - Review of Systems General: Reports: No Symptoms Cardiovascular: Reports: No Symptoms Gastrointestinal: Reports: No Symptoms 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: Reports: No Symptoms Musculoskeletal: Reports: No Symptoms Skin: Reports: No Symptoms - Patient Data Vitals - Most Recent: Last Vital Signs Temp 38 C 12/15/17 12:48 Pulse 80 12/15/17 16:08 Resp 11 L 12/15/17 16:03 BP 115/65 12/15/17 16:08 Pulse Ox 97 12/15/17 16:08 Weight - Most Recent: 88.451 kg I&O - Last 24 Hours: Intake & Output 12/15/17 12/15/17 12/15/17 06:59 14:59 22:59 Intake Total 2000 Output Total 200 Balance 1800 Lab Results Last 24 Hrs: Laboratory Results - last 24 hr 12/14/17 12/14/17 12/14/17 Range/Units 21:20 21:20 22:05 WBC 10.51 (4.0-11.0) K/uL RBC 4.76 (4.30-5.90) M/uL Hgb 14.9 (12.0-16.0) g/dL Hct 43.1 (36.0-46.0) % MCV 90.5 (80.0-98.0) fL MCH 31.3 (27.0-32.0) pg MCHC 34.6 (31.0-37.0) g/dL RDW Std Deviation 42.9 (28.0-62.0) fl RDW Coeff of Rubi 13 (11.0-15.0) % Plt Count 201 (150-400) K/uL MPV 9.50 (7.40-12.00) fL Neut % (Auto) 87.0 H (48.0-80.0) % Lymph % (Auto) 6.4 L (16.0-40.0) % [place] % (Auto) 5.9 (0.0-15.0) % Eos % (Auto) 0.5 (0.0-7.0) % Baso % (Auto) 0.2 (0.0-1.5) % Neut # (Auto) 9.2 H (1.4-5.7) K/uL Lymph # (Auto) 0.7 (0.6-2.4) K/uL [place] # (Auto) 0.6 (0.0-0.8) K/uL Eos # (Auto) 0.1 (0.0-0.7) K/uL Baso # (Auto) 0.0 (0.0-0.1) K/uL Nucleated RBC % 0.0 /100WBC Nucleated RBCs # 0 K/uL Sodium 136 (136-145) mmol/L Potassium 3.8 (3.5-5.1) mmol/L Chloride 102 (98-107) mmol/L Carbon Dioxide 25.4 (21.0-32.0) mmol/L BUN 12 (7.0-18.0) mg/dL Creatinine 0.8 (0.6-1.0) mg/dL Est Cr Clr Drug Dosing 60.38 mL/min Estimated GFR (MDRD) > 60.0 ml/min Glucose 150 H (74-106) mg/dL Calcium 9.0 (8.5-10.1) mg/dL Phosphorus (2.6-4.7) mg/dL Magnesium (1.8-2.4) mg/dL Total Bilirubin 1.1 H (0.2-1.0) mg/dL AST 14 L (15-37) IU/L ALT 17 (14-63) IU/L Alkaline Phosphatase 56 (46-116) U/L Total Protein 6.9 (6.4-8.2) g/dL Albumin 3.5 (3.4-5.0) g/dL Globulin 3.4 (2.0-3.5) g/dL Albumin/Globulin Ratio 1.0 L (1.3-2.8) Lipase 100 (73-393) U/L Urine Color YELLOW Urine Appearance CLEAR Urine pH 6.0 (5.0-8.0) Ur Specific [place] 1.025 (1.001-1.035) Urine Protein NEGATIVE (NEGATIVE) mg/dL Urine Glucose (UA) NEGATIVE (NEGATIVE) mg/dL Urine Ketones TRACE H (NEGATIVE) mg/dL Urine Occult Blood TRACE-INTACT (NEGATIVE) Urine Nitrite NEGATIVE (NEGATIVE) Urine Bilirubin NEGATIVE (NEGATIVE) Urine Urobilinogen 0.2 (<2.0) EU/dL Ur Leukocyte Esterase SMALL (NEGATIVE) Urine RBC NONE SEEN (0-2/HPF) Urine WBC 4-6 (0-5/HPF) Ur Epithelial Cells FEW (NONE-FEW) Urine Bacteria FEW (NEGATIVE) Urine Mucus MODERATE (NONE-MOD) 12/15/17 12/15/17 Range/Units 13:11 13:11 WBC 10.42 (4.0-11.0) K/uL RBC 4.52 (4.30-5.90) M/uL Hgb 14.1 (12.0-16.0) g/dL Hct 41.7 (36.0-46.0) % MCV 92.3 (80.0-98.0) fL MCH 31.2 (27.0-32.0) pg MCHC 33.8 (31.0-37.0) g/dL RDW Std Deviation 44.7 (28.0-62.0) fl RDW Coeff of Rubi 13 (11.0-15.0) % Plt Count 154 (150-400) K/uL MPV 9.60 (7.40-12.00) fL Neut % (Auto) 93.4 H (48.0-80.0) % Lymph % (Auto) 4.7 L (16.0-40.0) % [place] % (Auto) 1.7 (0.0-15.0) % Eos % (Auto) 0.1 (0.0-7.0) % Baso % (Auto) 0.1 (0.0-1.5) % Neut # (Auto) 9.7 H (1.4-5.7) K/uL Lymph # (Auto) 0.5 L (0.6-2.4) K/uL [place] # (Auto) 0.2 (0.0-0.8) K/uL Eos # (Auto) 0.0 (0.0-0.7) K/uL Baso # (Auto) 0.0 (0.0-0.1) K/uL Nucleated RBC % 0.0 /100WBC Nucleated RBCs # 0 K/uL Sodium 135 L (136-145) mmol/L Potassium 4.0 (3.5-5.1) mmol/L Chloride 102 (98-107) mmol/L Carbon Dioxide 25.8 (21.0-32.0) mmol/L BUN 9 (7.0-18.0) mg/dL Creatinine 0.8 (0.6-1.0) mg/dL Est Cr Clr Drug Dosing 58.04 mL/min Estimated GFR (MDRD) > 60.0 ml/min Glucose 150 H (74-106) mg/dL Calcium 8.5 (8.5-10.1) mg/dL Phosphorus 3.0 (2.6-4.7) mg/dL Magnesium 1.7 L (1.8-2.4) mg/dL Total Bilirubin (0.2-1.0) mg/dL AST (15-37) IU/L ALT (14-63) IU/L Alkaline Phosphatase (46-116) U/L Total Protein (6.4-8.2) g/dL Albumin (3.4-5.0) g/dL Globulin (2.0-3.5) g/dL Albumin/Globulin Ratio (1.3-2.8) Lipase (73-393) U/L Urine Color Urine Appearance Urine pH (5.0-8.0) Ur Specific [place] (1.001-1.035) Urine Protein (NEGATIVE) mg/dL Urine Glucose (UA) (NEGATIVE) mg/dL Urine Ketones (NEGATIVE) mg/dL Urine Occult Blood (NEGATIVE) Urine Nitrite (NEGATIVE) Urine Bilirubin (NEGATIVE) Urine Urobilinogen (<2.0) EU/dL Ur Leukocyte Esterase (NEGATIVE) Urine RBC (0-2/HPF) Urine WBC (0-5/HPF) Ur Epithelial Cells (NONE-FEW) Urine Bacteria (NEGATIVE) Urine Mucus (NONE-MOD) Med Orders - Current: Current Medications Cyclobenzaprine HCl (Flexeril) 5 mg PO BID AISHA Diphenhydramine HCl (Benadryl) 25 mg IVPUSH Q4H PRN PRN Reason: Itching Heparin Sodium (Porcine) (Heparin Sodium) 5,000 units SUBCUT Q12H AISHA Sodium Chloride (Normal Saline) 500 mls @ 999 mls/hr IV STAT AISHA Last Admin: 12/14/17 21:50 Dose: 999 mls/hr Lactated Ringer's (Ringers, Lactated) 1,000 mls @ 125 mls/hr IV ASDIRECTED [facility] Last Admin: 12/15/17 07:32 Dose: 125 mls/hr Lactated Ringer's (Ringers, Lactated) 1,000 mls @ 125 mls/hr IV ASDIRECTED [facility] Piperacillin Sod/Tazobactam (Sod 3.375 gm/ Sodium Chloride) 50 mls @ 100 mls/ hr IV Q8H [facility] Last Admin: 12/15/17 07:30 Dose: 100 mls/hr Ondansetron HCl (Zofran) 4 mg IVPUSH Q6H PRN PRN Reason: Nausea/Vomiting Pantoprazole Sodium (Protonix Iv) 40 mg IVPUSH DAILY [facility] Sodium Chloride (Saline Flush) 10 ml FLUSH ASDIRECTED PRN PRN Reason: Keep Vein Open Sodium Chloride (Saline Flush) 2.5 ml FLUSH ASDIRECTED PRN PRN Reason: Keep Vein Open Sodium Chloride (Saline Flush) 10 ml FLUSH ASDIRECTED PRN PRN Reason: Keep Vein Open Sodium Chloride (Saline Flush) 2.5 ml FLUSH ASDIRECTED PRN PRN Reason: Keep Vein Open Discontinued Medications Bupivacaine HCl (Marcaine 0.5%) Confirm Administered Dose 30 ml .ROUTE .STK-MED ONE Stop: 12/15/17 07:44 Cefazolin Sodium (Ancef) Confirm Administered Dose 1 gm .ROUTE .STK-MED ONE Stop: 12/15/17 07:44 Dexamethasone (Dexamethasone) Confirm Administered Dose 20 mg .ROUTE .STK-MED ONE Stop: 12/15/17 09:01 Fentanyl (Sublimaze) Confirm Administered Dose 100 mcg .ROUTE .STK-MED ONE Stop: 12/15/17 09:00 Fentanyl (Sublimaze) Confirm Administered Dose 100 mcg .ROUTE .STK-MED ONE Stop: 12/15/17 10:51 Hydromorphone HCl (Dilaudid) 0.5 mg IVPUSH Q1H PRN PRN Reason: Pain (severe 7-10) Last Admin: 12/15/17 06:33 Dose: 0.5 mg Hydromorphone HCl (Dilaudid) Confirm Administered Dose 2 mg .ROUTE .STK-MED ONE Stop: 12/15/17 10:51 Piperacillin Sod/Tazobactam (Sod 3.375 gm/ Sodium Chloride) 50 mls @ 100 mls/ hr IV ONETIME ONE Stop: 12/15/17 00:15 Last Admin: 12/14/17 23:53 Dose: 100 mls/hr Acetaminophen (Ofirmev) Confirm Administered Dose 100 mls @ as directed IV .STK- MED ONE Stop: 12/15/17 09:33 Magnesium Sulfate 2 gm/ Premix 50 mls @ 50 mls/hr IV ONETIME ONE Stop: 12/15/17 15:29 Iopamidol (Isovue-370 (76%)) 100 ml IVPUSH ONETIME ONE Stop: 12/14/17 22:53 Last Admin: 12/14/17 22:53 Dose: 100 ml Ketorolac Tromethamine (Toradol) Confirm Administered Dose 30 mg .ROUTE .STK- MED ONE Stop: 12/15/17 10:44 Lidocaine (Xylocaine-Mpf 2%) Confirm Administered Dose 5 ml .ROUTE .STK-MED ONE Stop: 12/15/17 09:03 Midazolam HCl (Versed 1 Mg/Ml) Confirm Administered Dose 2 mg .ROUTE .STK-MED ONE Stop: 12/15/17 09:00 Morphine Sulfate (Morphine) 4 mg IVPUSH ONETIME ONE Stop: 12/14/17 22:26 Last Admin: 12/14/17 22:33 Dose: 4 mg Morphine Sulfate (Morphine [employer] Director 30 Mg In 30 Ml) 30 mg IV NOW STA; Protocol Stop: 12/15/17 12:59 Last Admin: 12/15/17 13:26 Dose: 30 mg Ondansetron HCl (Zofran) 4 mg IVPUSH ONETIME ONE Stop: 12/14/17 21:08 Last Admin: 12/14/17 21:50 Dose: 4 mg Ondansetron HCl (Zofran) Confirm Administered Dose 4 mg .ROUTE .STK-MED ONE Stop: 12/15/17 09:01 Phenylephrine HCl (Phenylephrine In Ns 100 Mcg/Ml) Confirm Administered Dose 1 mg .ROUTE .STK-MED ONE Stop: 12/15/17 10:20 Propofol (Diprivan 20 Ml) Confirm Administered Dose 200 mg .ROUTE .STK-MED ONE Stop: 12/15/17 09:00 Rocuronium [place] (Zemuron) Confirm Administered Dose 100 mg .ROUTE .STK-MED ONE Stop: 12/15/17 09:01 Succinylcholine Chloride (Quelicin) Confirm Administered Dose 200 mg .ROUTE .STK -MED ONE Stop: 12/15/17 09:01 Sugammadex Sodium (Bridion) Confirm Administered Dose 200 mg .ROUTE .STK-MED ONE Stop: 12/15/17 09:32 Sugammadex Sodium (Bridion) Confirm Administered Dose 200 mg .ROUTE .STK-MED ONE Stop: 12/15/17 12:20 - Exam Wound/Incisions: Dressing Dry and Intact, Drainage (serosanguinous ) General: Alert, Oriented, Cooperative Neck: Supple Lungs: Normal Respiratory Effort Cardiovascular: Regular Rate GI/Abdominal Exam: Soft, Distended (mild), Tender (in RLQ but softer and no rebound or guarding ) Extremities: Normal Inspection Skin: Warm, Dry, Intact Neurological: No New Focal Deficit - Problem List & Annotations (1) Appendicitis with perforation SNOMED Code(s): 91261228 Code(s): K35.2 - ACUTE APPENDICITIS WITH GENERALIZED PERITONITIS Status: Acute Current Visit: Yes (2) Appendicitis, acute, with generalized peritonitis SNOMED Code(s): 60813037 Code(s): K35.2 - ACUTE APPENDICITIS WITH GENERALIZED PERITONITIS Status: Acute Current Visit: Yes - Problem List Review Problem List Initiated/Reviewed/Updated: Yes - My Orders Last 24 Hours: Active Orders 24 hr Category Date Time Status Patient Status [ADT] Routine ADT 12/15/17 12:44 Active EKG Documentation Completion [RC] STAT Care 12/14/17 23:51 Inactive EKG Documentation Completion [RC] STAT Care 12/14/17 23:56 Active Gastrointestinal Tube Mgmt [RC] ASDIRECTED Care 12/15/17 12:47 Active Overnight Pulse Oximetry [RC] Click to Edit Care 12/15/17 13:00 Active Oxygen Therapy [RC] PRN Care 12/15/17 00:25 Active Oxygen Therapy [RC] PRN Care 12/15/17 12:44 Active Up With Assistance [RC] ASDIRECTED Care 12/15/17 12:44 Active Up ad Hayley [RC] ASDIRECTED Care 12/15/17 00:25 Active Urinary Catheter Assessment [RC] ASDIRECTED Care 12/15/17 12:44 Active Vital Signs [RC] PER UNIT ROUTINE Care 12/15/17 00:25 Active Vital Signs [RC] PER UNIT ROUTINE Care 12/15/17 12:44 Active Nothing Per Oral Diet [DIET] Diet 12/15/17 Breakfast Active BMP [BASIC METABOLIC PANEL,BMP] [CHEM] AM Lab 12/16/17 05:11 Ordered BMP [BASIC METABOLIC PANEL,BMP] [CHEM] AM Lab 12/17/17 05:11 Ordered BMP [BASIC METABOLIC PANEL,BMP] [CHEM] AM Lab 12/18/17 05:11 Ordered BMP [BASIC METABOLIC PANEL,BMP] [CHEM] AM Lab 12/19/17 05:11 Ordered BMP [BASIC METABOLIC PANEL,BMP] [CHEM] AM Lab 12/20/17 05:11 Ordered CBC W/O DIFF,HEMOGRAM [HEME] AM Lab 12/16/17 05:11 Ordered CBC W/O DIFF,HEMOGRAM [HEME] AM Lab 12/17/17 05:11 Ordered CBC W/O DIFF,HEMOGRAM [HEME] AM Lab 12/18/17 05:11 Ordered CBC W/O DIFF,HEMOGRAM [HEME] AM Lab 12/19/17 05:11 Ordered CBC W/O DIFF,HEMOGRAM [HEME] AM Lab 12/20/17 05:11 Ordered CULTURE BLOOD [BC] Stat Lab 12/14/17 21:20 Received CULTURE BLOOD [BC] Stat Lab 12/14/17 21:30 Received CULTURE URINE [RM] Stat Lab 12/14/17 22:05 Received MAGNESIUM [CHEM] AM Lab 12/16/17 05:11 Ordered PHOSPHORUS [CHEM] AM Lab 12/16/17 05:11 Ordered PHOSPHORUS [CHEM] AM Lab 12/17/17 05:11 Ordered PHOSPHORUS [CHEM] AM Lab 12/18/17 05:11 Ordered PHOSPHORUS [CHEM] AM Lab 12/19/17 05:11 Ordered PHOSPHORUS [CHEM] AM Lab 12/20/17 05:11 Ordered Cyclobenzaprine [Flexeril] Med 12/15/17 13:00 Active 5 mg PO BID Heparin Sodium Med 12/16/17 09:00 Active 5,000 units SUBCUT Q12H Lactated Ringers [Ringers, Lactated] 1,000 ml Med 12/14/17 23:45 Active IV ASDIRECTED Lactated Ringers [Ringers, Lactated] 1,000 ml Med 12/15/17 00:30 Active IV ASDIRECTED Ondansetron [Zofran] Med 12/15/17 00:25 Active 4 mg IVPUSH Q6H PRN Pantoprazole [ProTONIX IV] Med 12/15/17 13:00 Active 40 mg IVPUSH DAILY Piperacillin/Tazobactam [Piperacil-Tazobact] 3.375 gm Med 12/15/17 08:00 Active Sodium Chloride 0.9% [Normal Saline] 50 ml IV Q8H Sodium Chloride 0.9% [Normal Saline] 500 ml Med 12/14/17 21:15 Active IV STAT Sodium Chloride 0.9% [Saline Flush] Med 12/14/17 21:07 Active 10 ml FLUSH ASDIRECTED PRN Sodium Chloride 0.9% [Saline Flush] Med 12/15/17 00:25 Active 10 ml FLUSH ASDIRECTED PRN Sodium Chloride 0.9% [Saline Flush] Med 12/14/17 21:07 Active 2.5 ml FLUSH ASDIRECTED PRN Sodium Chloride 0.9% [Saline Flush] Med 12/15/17 00:25 Active 2.5 ml FLUSH ASDIRECTED PRN diphenhydrAMINE [Benadryl] Med 12/15/17 00:25 Active 25 mg IVPUSH Q4H PRN Abdominal Binder [OM.PC] Per Unit Routine Ot 12/15/17 12:47 Ordered Blood Culture x2 Reflex Set [OM.PC] Stat Ot 12/14/17 21:07 Ordered Peripheral IV Insertion Adult [OM.PC] Urgent Ot 12/15/17 00:25 Ordered Pulse Oximetry Continuous Monitoring [OM.PC] Routine Ot 12/15/17 13:00 Ordered Saline Lock Insert [OM.PC] Stat Ot 12/14/17 21:07 Ordered Resuscitation Status Routine Resus Stat 12/15/17 00:25 Ordered Medication Orders Cyclobenzaprine HCl (Flexeril) 5 mg PO BID AISHA Diphenhydramine HCl (Benadryl) 25 mg IVPUSH Q4H PRN PRN Reason: Itching Heparin Sodium (Porcine) (Heparin Sodium) 5,000 units SUBCUT Q12H AISHA Sodium Chloride (Normal Saline) 500 mls @ 999 mls/hr IV STAT AISHA Last Admin: 12/14/17 21:50 Dose: 999 mls/hr Lactated Ringer's (Ringers, Lactated) 1,000 mls @ 125 mls/hr IV ASDIRECTED [facility] Last Admin: 12/15/17 07:32 Dose: 125 mls/hr Infusion: 12/15/17 07:32 Dose: 125 mls/hr Admin: 12/14/17 23:52 Dose: 125 mls/hr Lactated Ringer's (Ringers, Lactated) 1,000 mls @ 125 mls/hr IV ASDIRECTED [facility] Piperacillin Sod/Tazobactam (Sod 3.375 gm/ Sodium Chloride) 50 mls @ 100 mls/ hr IV Q8H [facility] Last Admin: 12/15/17 07:30 Dose: 100 mls/hr Ondansetron HCl (Zofran) 4 mg IVPUSH Q6H PRN PRN Reason: Nausea/Vomiting Pantoprazole Sodium (Protonix Iv) 40 mg IVPUSH DAILY [facility] Sodium Chloride (Saline Flush) 10 ml FLUSH ASDIRECTED PRN PRN Reason: Keep Vein Open Sodium Chloride (Saline Flush) 2.5 ml FLUSH ASDIRECTED PRN PRN Reason: Keep Vein Open Sodium Chloride (Saline Flush) 10 ml FLUSH ASDIRECTED PRN PRN Reason: Keep Vein Open Sodium Chloride (Saline Flush) 2.5 ml FLUSH ASDIRECTED PRN PRN Reason: Keep Vein Open - Plan Plan (Free Text/Narrative):: -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 HR normal. Monitor for signs of sepsis. -Pulm: IS use and wean O2 as able. -GI: NG to LIS. Ok to clamp for meds. -Renal: Catheter to stay in place tonight. BUN/Cr normal. Good UOP -ID: ZOsyn scheduled. WBC still normal but neutrophil count high. Tylenol prn fever. -Px: Heparin tomorrow. SCDs. Has IVC filter in place. IV protonix.
[2017-12-15] MEDS ORDERED: Acetaminophen 325 MG Tab PO PRN (17:30)
[2017-12-15] MEDS: Pantoprazole 40 MG Vial IVPUSH SCH (17:58)
[2017-12-15] MEDS: Cyclobenzaprine 5 MG Tab PO SCH ×2 (18:05→21:16)
[2017-12-15] MEDS ORDERED: Morphine PF 30 MG/30 ML PCA Vial IV SCH (18:30)
[2017-12-15] MEDS ORDERED: Magnesium Sulfate/Water 50 ML ONE (19:18)
[2017-12-16] MEDS: Piperacillin/Tazobactam 3.375 GM in Sodium Chloride 0.9% 50 ML IV SCH ×3 (00:06→16:00)
--- NOTE | 2017-12-16 00:37 | OR ---
SURGEON: CARLA FRANCISCO MD DATE OF PROCEDURE: 12/15/2017 PREOPERATIVE DIAGNOSIS: Appendicitis. POSTOPERATIVE DIAGNOSIS: Acute appendicitis with perforation and generalized peritonitis. PROCEDURE PERFORMED: Laparoscopic converted to open appendectomy. CO-SURGEON: Roberto Ortiz M.D. BATCH AND FURNACE MANAGER: Dr. Demetrius Terry. FLUIDS: 2000 mL of crystalloid. ESTIMATED BLOOD LOSS: 100 mL. URINE OUTPUT: 200 mL. FINDINGS: Acutely inflamed appendix encased in thickened periappendiceal and ileocolic fat. The base of the appendix was necrotic and contained a large fecalith. Large amount of fibrinous exudate and purulence in right lower quadrant. COMPLICATIONS: None. INDICATIONS: The patient is a 72-year-old female who presents with right lower quadrant pain. Two years ago, she had perforated appendicitis complicated by phlegmon. She was treated conservatively with IV antibiotics. After the inflammation had settled down, she underwent a colonoscopy, which was normal. She never had an interval appendectomy. Yesterday, she developed abdominal pain and presented right away to the emergency room given the similarity in her symptoms from her previous episode of appendicitis. White blood cell count was normal, but she did have a left shift. A CT of the abdomen and pelvis showed a 1.5 cm dilated appendix with an appendicolith at the proximal appendix. On the CT scan, there was no evidence of rupture. The patient was admitted to the hospital for IV fluid resuscitation and IV antibiotics. I explained to her the need for an appendectomy. I explained both the laparoscopic and open approaches. She understands that there may be intraabdominal adhesions as well as severe inflammation that could make this case difficult and require conversion from laparoscopic to open. I explained the procedure, the expected perioperative course for both ruptured and nonruptured appendicitis. I explained the risks including bleeding, infection, or damage to the surrounding structures. The patient verbalized understanding and wishes to proceed. PROCEDURE IN DETAIL: The patient was brought into the OR and placed on the OR table in supine position. A time-out was completed verifying the patient's name, age, date of , allergies, and procedure to be performed. General endotracheal anesthesia was induced. The left arm was tucked at the patient's side, and a Soares catheter placed. The abdomen was prepped and draped in usual standard fashion. I anesthetized an area 3 fingerbreadths below the left subcostal margin in the midclavicular line with 0.5% Marcaine plain. A 1 cm incision was made using #11 blade. A 5 mm optical trocar was used to gain entry into the left upper quadrant via direct visualization. All layers of the abdominal wall were visualized upon entry. Once this was completed, the abdomen was insufflated. A 5 mm 30-degree scope was inserted into the abdomen, and I inspected the area underneath my initial trocar placement. This appeared normal. A 5 mm trocar was then placed just left and lateral to the umbilicus under direct visualization. The patient was then tipped into Trendelenburg position and airplaned slightly to the left. Upon first inspection of the right lower quadrant, the patient had some intraabdominal adhesions of the small bowel and cecum to the right lower quadrant. I could see some fibrinous exudate and purulent material around this area. The decision was made to continue with the laparoscopic approach. A 12 mm trocar was placed under direct visualization in the left lower quadrant. Then, using blunt dissectors and gentle suction, I started to take down the adhesions in the right lower quadrant. These were wispy and able to be taken down without any difficulty. I immediately encountered a thickened piece of fat overlying the base of the cecum. I elevated this with an atraumatic grasper and tried to use a Kittner to develop a plane. There was a large amount of induration around this area, and I was unable to separate the structures. I followed this fat and identified what appeared to be the appendix. I grasped this with an atraumatic grasper and rolled the cecum medially. Along the lateral edge of the cecum, the patient had a large amount of indurated fat. My planes were greatly obscured by all the inflammation, fibrinous exudate, and fluid around the area. I continued to try and bluntly dissect this out, but was unable to do so. I asked my partner, Dr. Roberto Ortiz, to consult on the case. He agreed that the inflammation was too great and that the safest approach was to convert to open. The decision was then made to convert to open. I turned my attention to the 12 mm trocar site. I removed the 12 mm trocar and closed the fascia in this area with an interrupted 0 Vicryl suture using a Bert-Apoorva device. I then palpated the area over my cecum and marked the skin over this area to allow appropriate positioning of my McBurney's incision. I anesthetized the area over my open incision with 0.5% Marcaine plain. A #15 blade was then used to make an 8 cm incision in the right lower quadrant obliquely. Cautery was then used to dissect down through the subcutaneous fat down to the fascia. The external oblique was opened along its fibers as well as the internal oblique. The peritoneum was identified and I elevated and incised this sharply with Metzenbaum scissors. There was an immediate swartz of gas. Retractors were then placed, and I was able to deliver the cecum and terminal ileum up through the incision. Upon further inspection, the initial fat that I noticed appeared to be an indurated piece of the ileocecal fat pad. I grasped this with a DeBakey and gently took down its adhesions using hemostat and Kittner. When I elevated this off the cecum, I identified a hole at the base of the appendix. It appeared to be necrotic, and there was a large firm appendicolith inside the bowel. I then dissected the appendix from proximal to distal free of its surrounding attachments. The appendiceal mesentery was taken down using a Harmonic device. Once the appendix was completely mobilized from the appendiceal mesentery, I then took Metzenbaum scissors and incised my appendix sharply from the cecum. The necrotic tissue encompassed about half of the circumference of the base of the appendix. The necrotic tissue was debrided back. The appendix was then sent to Pathology labeled as appendix. The indurated fat that had been overlying this was dissected free of its attachments and placed on the back table. Dr. Ortiz and I then inspected our field. We could clearly see the terminal ileum coming in medially and could see healthy-appearing colonic mucosa around where appendix used to be. The tissues around it, however, were indurated. The decision was made to close this 1 cm defect primarily using interrupted 3-0 silk sutures. These were placed intermittently and with great care to avoid overlapping with the terminal ileum and to not tear through the tissues. Multiple sutures were placed, and the defect was closed with no undue tension. We then secured the previously dissected ileal fat pad over the top of our repair as a patch. This was tied over using the free ends of our 3-0 silk ties. We then copiously irrigated the abdomen with 1 L of normal saline and suctioned it out. A 19-Israeli Sae drain was then placed along the right paracolic gutter over the anterior surface of the ascending colon for drainage. It was brought out medially and secured to the skin using a 3-0 silk tie. We then closed the peritoneum and internal oblique with a running 0 Vicryl suture. The external oblique was then closed over this in a similar fashion. Given the contaminated nature of the case, the decision was made to close the skin using 2-0 Ethilon suture. One-inch Zach drains were placed in between these interrupted sutures to allow drainage. The previous laparoscopic incisions were closed with interrupted Ethilon suture as well. Sterile dressings were applied. The patient was then transferred to the PACU in stable condition. JUDY LIN /[id number] MTDD
[2017-12-16 06:02] LABS: CHLORIDE,CL 105 mmol/L (98-107); SODIUM,NA 137 mmol/L (136-145)
[2017-12-16] MEDS: Cyclobenzaprine 5 MG Tab PO SCH (08:27)
[2017-12-16] MEDS: Pantoprazole 40 MG Vial IVPUSH SCH (08:27)
[2017-12-16] MEDS: Lactated Ringers 1,000 ML IV SCH (08:30)
--- NOTE | 2017-12-16 08:59 | PCM.SURGPN ---
- General Info Date of Service: 12/16/17 Date of Surgery/Procedure: 12/15/17 POD#: 1 Functional Status: Reports: Pain Controlled, Ambulating, Urinating, Incentive Spirometry. Denies: New Symptoms - Review of Systems General: Reports: No Symptoms Pulmonary: Reports: No Symptoms Cardiovascular: Reports: No Symptoms Gastrointestinal: Reports: No Symptoms 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: Reports: No Symptoms - Patient Data Vitals - Most Recent: Last Vital Signs Temp 37 C 12/16/17 08:00 Pulse 82 12/15/17 16:16 Resp 12 12/16/17 08:00 BP 112/58 L 12/16/17 08:00 Pulse Ox 95 12/16/17 08:00 Weight - Most Recent: 91.127 kg I&O - Last 24 Hours: Intake & Output 12/15/17 12/16/17 12/16/17 22:59 06:59 14:59 Intake Total 2730 50 Output Total 140 1200 290 Balance 2590 -1150 -290 Lab Results Last 24 Hrs: Laboratory Results - last 24 hr 12/15/17 12/15/17 12/16/17 Range/Units 13:11 13:11 05:20 WBC 10.42 10.54 (4.0-11.0) K/uL RBC 4.52 4.41 (4.30-5.90) M/uL Hgb 14.1 13.5 (12.0-16.0) g/dL Hct 41.7 41.1 (36.0-46.0) % MCV 92.3 93.2 (80.0-98.0) fL MCH 31.2 30.6 (27.0-32.0) pg MCHC 33.8 32.8 (31.0-37.0) g/dL RDW Std Deviation 44.7 44.3 (28.0-62.0) fl RDW Coeff of Rubi 13 13 (11.0-15.0) % Plt Count 154 181 (150-400) K/uL MPV 9.60 9.30 (7.40-12.00) fL Neut % (Auto) 93.4 H (48.0-80.0) % Lymph % (Auto) 4.7 L (16.0-40.0) % [place] % (Auto) 1.7 (0.0-15.0) % Eos % (Auto) 0.1 (0.0-7.0) % Baso % (Auto) 0.1 (0.0-1.5) % Neut # (Auto) 9.7 H (1.4-5.7) K/uL Lymph # (Auto) 0.5 L (0.6-2.4) K/uL [place] # (Auto) 0.2 (0.0-0.8) K/uL Eos # (Auto) 0.0 (0.0-0.7) K/uL Baso # (Auto) 0.0 (0.0-0.1) K/uL Nucleated RBC % 0.0 0.0 /100WBC Nucleated RBCs # 0 0 K/uL Sodium 135 L (136-145) mmol/L Potassium 4.0 (3.5-5.1) mmol/L Chloride 102 (98-107) mmol/L Carbon Dioxide 25.8 (21.0-32.0) mmol/L BUN 9 (7.0-18.0) mg/dL Creatinine 0.8 (0.6-1.0) mg/dL Est Cr Clr Drug Dosing 58.04 mL/min Estimated GFR (MDRD) > 60.0 ml/min Glucose 150 H (74-106) mg/dL Calcium 8.5 (8.5-10.1) mg/dL Phosphorus 3.0 (2.6-4.7) mg/dL Magnesium 1.7 L (1.8-2.4) mg/dL 12/16/17 Range/Units 05:20 WBC (4.0-11.0) K/uL RBC (4.30-5.90) M/uL Hgb (12.0-16.0) g/dL Hct (36.0-46.0) % MCV (80.0-98.0) fL MCH (27.0-32.0) pg MCHC (31.0-37.0) g/dL RDW Std Deviation (28.0-62.0) fl RDW Coeff of Rubi (11.0-15.0) % Plt Count (150-400) K/uL MPV (7.40-12.00) fL Neut % (Auto) (48.0-80.0) % Lymph % (Auto) (16.0-40.0) % [place] % (Auto) (0.0-15.0) % Eos % (Auto) (0.0-7.0) % Baso % (Auto) (0.0-1.5) % Neut # (Auto) (1.4-5.7) K/uL Lymph # (Auto) (0.6-2.4) K/uL [place] # (Auto) (0.0-0.8) K/uL Eos # (Auto) (0.0-0.7) K/uL Baso # (Auto) (0.0-0.1) K/uL Nucleated RBC % /100WBC Nucleated RBCs # K/uL Sodium 137 (136-145) mmol/L Potassium 4.0 (3.5-5.1) mmol/L Chloride 105 (98-107) mmol/L Carbon Dioxide 25.3 (21.0-32.0) mmol/L BUN 9 (7.0-18.0) mg/dL Creatinine 0.7 (0.6-1.0) mg/dL Est Cr Clr Drug Dosing 66.33 mL/min Estimated GFR (MDRD) > 60.0 ml/min Glucose 146 H (74-106) mg/dL Calcium 8.8 (8.5-10.1) mg/dL Phosphorus 3.0 (2.6-4.7) mg/dL Magnesium 2.2 (1.8-2.4) mg/dL Pito Results Last 24 Hrs: Microbiology 12/14/17 21:30 Aerobic Blood Culture - Preliminary Blood - Venous - Lab Draw NO GROWTH AFTER 1 DAY Anaerobic Blood Culture - Preliminary NO GROWTH AFTER 1 DAY 12/14/17 21:20 Aerobic Blood Culture - Preliminary Blood - Venous NO GROWTH AFTER 1 DAY Anaerobic Blood Culture - Preliminary NO GROWTH AFTER 1 DAY Med Orders - Current: Current Medications Acetaminophen (Tylenol) 650 mg PO Q4H PRN PRN Reason: Fever Cyclobenzaprine HCl (Flexeril) 5 mg PO BID [facility] Last Admin: 12/16/17 08:27 Dose: 5 mg Diphenhydramine HCl (Benadryl) 25 mg IVPUSH Q4H PRN PRN Reason: Itching Heparin Sodium (Porcine) (Heparin Sodium) 5,000 units SUBCUT Q12H [facility] Sodium Chloride (Normal Saline) 500 mls @ 999 mls/hr IV STAT [facility] Last Admin: 12/14/17 21:50 Dose: 999 mls/hr Lactated Ringer's (Ringers, Lactated) 1,000 mls @ 125 mls/hr IV ASDIRECTED [facility] Last Admin: 12/16/17 08:30 Dose: 125 mls/hr Lactated Ringer's (Ringers, Lactated) 1,000 mls @ 125 mls/hr IV ASDIRECTED [facility] Last Admin: 12/16/17 01:01 Dose: 125 mls/hr Piperacillin Sod/Tazobactam (Sod 3.375 gm/ Sodium Chloride) 50 mls @ 100 mls/ hr IV Q8H [facility] Last Admin: 12/16/17 08:24 Dose: 100 mls/hr Morphine Sulfate (Morphine Floor Surfacer 30 Mg In 30 Ml) 30 mg IV CONTINUOUS [facility]HA; Protocol Ondansetron HCl (Zofran) 4 mg IVPUSH Q6H PRN PRN Reason: Nausea/Vomiting Pantoprazole Sodium (Protonix Iv) 40 mg IVPUSH DAILY [facility] Last Admin: 12/16/17 08:27 Dose: 40 mg Sodium Chloride (Saline Flush) 10 ml FLUSH ASDIRECTED PRN PRN Reason: Keep Vein Open Sodium Chloride (Saline Flush) 2.5 ml FLUSH ASDIRECTED PRN PRN Reason: Keep Vein Open Sodium Chloride (Saline Flush) 10 ml FLUSH ASDIRECTED PRN PRN Reason: Keep Vein Open Sodium Chloride (Saline Flush) 2.5 ml FLUSH ASDIRECTED PRN PRN Reason: Keep Vein Open Discontinued Medications Bupivacaine HCl (Marcaine 0.5%) Confirm Administered Dose 30 ml .ROUTE .STK-MED ONE Stop: 12/15/17 07:44 Cefazolin Sodium (Ancef) Confirm Administered Dose 1 gm .ROUTE .STK-MED ONE Stop: 12/15/17 07:44 Dexamethasone (Dexamethasone) Confirm Administered Dose 20 mg .ROUTE .STK-MED ONE Stop: 12/15/17 09:01 Fentanyl (Sublimaze) Confirm Administered Dose 100 mcg .ROUTE .STK-MED ONE Stop: 12/15/17 09:00 Fentanyl (Sublimaze) Confirm Administered Dose 100 mcg .ROUTE .STK-MED ONE Stop: 12/15/17 10:51 Hydromorphone HCl (Dilaudid) 0.5 mg IVPUSH Q1H PRN PRN Reason: Pain (severe 7-10) Last Admin: 12/15/17 06:33 Dose: 0.5 mg Hydromorphone HCl (Dilaudid) Confirm Administered Dose 2 mg .ROUTE .STK-MED ONE Stop: 12/15/17 10:51 Piperacillin Sod/Tazobactam (Sod 3.375 gm/ Sodium Chloride) 50 mls @ 100 mls/ hr IV ONETIME ONE Stop: 12/15/17 00:15 Last Admin: 12/14/17 23:53 Dose: 100 mls/hr Acetaminophen (Ofirmev) Confirm Administered Dose 100 mls @ as directed IV .STK- MED ONE Stop: 12/15/17 09:33 Magnesium Sulfate 2 gm/ Premix 50 mls @ 50 mls/hr IV ONETIME ONE Stop: 12/15/17 15:29 Last Admin: 12/15/17 19:25 Dose: 50 mls/hr Magnesium Sulfate (Magnesium Sulfate 2 Gm In Water 50 Ml) Confirm Administered Dose 50 mls @ as directed .ROUTE .STK-MED ONE Stop: 12/15/17 19:19 Last Admin: 12/15/17 19:25 Dose: Not Given Iopamidol (Isovue-370 (76%)) 100 ml IVPUSH ONETIME ONE Stop: 12/14/17 22:53 Last Admin: 12/14/17 22:53 Dose: 100 ml Ketorolac Tromethamine (Toradol) Confirm Administered Dose 30 mg .ROUTE .STK- MED ONE Stop: 12/15/17 10:44 Lidocaine (Xylocaine-Mpf 2%) Confirm Administered Dose 5 ml .ROUTE .STK-MED ONE Stop: 12/15/17 09:03 Midazolam HCl (Versed 1 Mg/Ml) Confirm Administered Dose 2 mg .ROUTE .STK-MED ONE Stop: 12/15/17 09:00 Morphine Sulfate (Morphine) 4 mg IVPUSH ONETIME ONE Stop: 12/14/17 22:26 Last Admin: 12/14/17 22:33 Dose: 4 mg Morphine Sulfate (Morphine Floor Surfacer 30 Mg In 30 Ml) 30 mg IV NOW STA; Protocol Stop: 12/15/17 12:59 Last Admin: 12/15/17 13:26 Dose: 30 mg Ondansetron HCl (Zofran) 4 mg IVPUSH ONETIME ONE Stop: 12/14/17 21:08 Last Admin: 12/14/17 21:50 Dose: 4 mg Ondansetron HCl (Zofran) Confirm Administered Dose 4 mg .ROUTE .STK-MED ONE Stop: 12/15/17 09:01 Phenylephrine HCl (Phenylephrine In Ns 100 Mcg/Ml) Confirm Administered Dose 1 mg .ROUTE .STK-MED ONE Stop: 12/15/17 10:20 Propofol (Diprivan 20 Ml) Confirm Administered Dose 200 mg .ROUTE .STK-MED ONE Stop: 12/15/17 09:00 Rocuronium [place] (Zemuron) Confirm Administered Dose 100 mg .ROUTE .STK-MED ONE Stop: 12/15/17 09:01 Succinylcholine Chloride (Quelicin) Confirm Administered Dose 200 mg .ROUTE .STK -MED ONE Stop: 12/15/17 09:01 Sugammadex Sodium (Bridion) Confirm Administered Dose 200 mg .ROUTE .STK-MED ONE Stop: 12/15/17 09:32 Sugammadex Sodium (Bridion) Confirm Administered Dose 200 mg .ROUTE .STK-MED ONE Stop: 12/15/17 12:20 - Exam Wound/Incisions: Healing Well, Drainage (serosanguinous ) Quality Assessment: Supplemental Oxygen General: Alert, Oriented, Cooperative HEENT: Pupils Equal, Pupils Reactive Lungs: Normal Respiratory Effort Cardiovascular: Regular Rate GI/Abdominal Exam: Soft, Non-Tender, No Distention, No Mass, Other (Drain with minimal serosanguinous drainage) Skin: Warm, Dry, Intact Neurological: No New Focal Deficit Psy/Mental Status: Alert, Normal Affect, Normal Mood - Problem List & Annotations (1) Appendicitis with perforation SNOMED Code(s): 40365370 Code(s): K35.2 - ACUTE APPENDICITIS WITH GENERALIZED PERITONITIS Status: Acute Current Visit: Yes (2) Appendicitis, acute, with generalized peritonitis SNOMED Code(s): 33154884 Code(s): K35.2 - ACUTE APPENDICITIS WITH GENERALIZED PERITONITIS Status: Acute Current Visit: Yes - Problem List Review Problem List Initiated/Reviewed/Updated: Yes - My Orders Last 24 Hours: Active Orders 24 hr Category Date Time Status Patient Status [ADT] Routine ADT 12/15/17 12:44 Active Gastrointestinal Tube Mgmt [RC] Q4H Care 12/15/17 12:47 Active Up With Assistance [RC] ASDIRECTED Care 12/15/17 12:44 Active Urinary Catheter Assessment [RC] Q4H Care 12/15/17 12:44 Active Clear Liquid Diet [DIET] Diet 12/16/17 Lunch Active BMP [BASIC METABOLIC PANEL,BMP] [CHEM] AM Lab 12/17/17 05:11 Ordered BMP [BASIC METABOLIC PANEL,BMP] [CHEM] AM Lab 12/18/17 05:11 Ordered BMP [BASIC METABOLIC PANEL,BMP] [CHEM] AM Lab 12/19/17 05:11 Ordered BMP [BASIC METABOLIC PANEL,BMP] [CHEM] AM Lab 12/20/17 05:11 Ordered CBC WITH AUTO DIFF [HEME] AM Lab 12/17/17 05:11 Ordered CBC WITH AUTO DIFF [HEME] AM Lab 12/18/17 05:11 Ordered CBC WITH AUTO DIFF [HEME] AM Lab 12/19/17 05:11 Ordered CBC WITH AUTO DIFF [HEME] AM Lab 12/20/17 05:11 Ordered CBC WITH AUTO DIFF [HEME] AM Lab 12/21/17 05:11 Ordered PHOSPHORUS [CHEM] AM Lab 12/17/17 05:11 Ordered PHOSPHORUS [CHEM] AM Lab 12/18/17 05:11 Ordered PHOSPHORUS [CHEM] AM Lab 12/19/17 05:11 Ordered PHOSPHORUS [CHEM] AM Lab 12/20/17 05:11 Ordered Acetaminophen [Tylenol] Med 12/15/17 17:30 Active 650 mg PO Q4H PRN Cyclobenzaprine [Flexeril] Med 12/15/17 13:00 Active 5 mg PO BID Heparin Sodium Med 12/16/17 09:00 Active 5,000 units SUBCUT Q12H Morphine PF [Morphine [employer]INT [employer]ER 30 MG in 30 ML] Med 12/15/17 18:30 Active 30 mg IV CONTINUOUS Pantoprazole [ProTONIX IV] Med 12/15/17 13:00 Active 40 mg IVPUSH DAILY Piperacillin/Tazobactam [Piperacil-Tazobact] 3.375 gm Med 12/15/17 08:00 Active Sodium Chloride 0.9% [Normal Saline] 50 ml IV Q8H Abdominal Binder [OM.PC] Per Unit Routine Oth 12/15/17 12:47 Ordered Pulse Oximetry Continuous Monitoring [OM.PC] Routine Oth 12/15/17 13:00 Ordered Remove Drain [Drain Removal] [OM.PC] Routine Oth 12/16/17 08:27 Ordered Medication Orders Acetaminophen (Tylenol) 650 mg PO Q4H PRN PRN Reason: Fever Cyclobenzaprine HCl (Flexeril) 5 mg PO BID [facility] Last Admin: 12/16/17 08:27 Dose: 5 mg Admin: 12/15/17 21:16 Dose: Admin: 12/15/17 18:05 Dose: 5 mg Diphenhydramine HCl (Benadryl) 25 mg IVPUSH Q4H PRN PRN Reason: Itching Heparin Sodium (Porcine) (Heparin Sodium) 5,000 units SUBCUT Q12H [facility] Sodium Chloride (Normal Saline) 500 mls @ 999 mls/hr IV STAT [facility] Last Admin: 12/14/17 21:50 Dose: 999 mls/hr Lactated Ringer's (Ringers, Lactated) 1,000 mls @ 125 mls/hr IV ASDIRECTED [facility] Last Admin: 12/16/17 08:30 Dose: 125 mls/hr Infusion: 12/16/17 02:20 Dose: 125 mls/hr Admin: 12/15/17 18:20 Dose: 125 mls/hr Infusion: 12/15/17 17:00 Dose: 125 mls/hr Admin: 12/15/17 07:32 Dose: 125 mls/hr Infusion: 12/15/17 07:32 Dose: 125 mls/hr Admin: 12/14/17 23:52 Dose: 125 mls/hr Lactated Ringer's (Ringers, Lactated) 1,000 mls @ 125 mls/hr IV ASDIRECTED [facility] Last Admin: 12/16/17 01:01 Dose: 125 mls/hr Piperacillin Sod/Tazobactam (Sod 3.375 gm/ Sodium Chloride) 50 mls @ 100 mls/ hr IV Q8H [facility] Last Admin: 12/16/17 08:24 Dose: 100 mls/hr Infusion: 12/16/17 00:36 Dose: 100 mls/hr Admin: 12/16/17 00:06 Dose: 100 mls/hr Infusion: 12/15/17 18:50 Dose: 100 mls/hr Admin: 12/15/17 18:20 Dose: 100 mls/hr Infusion: 12/15/17 08:00 Dose: 100 mls/hr Admin: 12/15/17 07:30 Dose: 100 mls/hr Morphine Sulfate (Morphine Floor Surfacer 30 Mg In 30 Ml) 30 mg IV CONTINUOUS AISHA; Protocol Ondansetron HCl (Zofran) 4 mg IVPUSH Q6H PRN PRN Reason: Nausea/Vomiting Pantoprazole Sodium (Protonix Iv) 40 mg IVPUSH DAILY [facility] Last Admin: 12/16/17 08:27 Dose: 40 mg Admin: 12/15/17 17:58 Dose: 40 mg Sodium Chloride (Saline Flush) 10 ml FLUSH ASDIRECTED PRN PRN Reason: Keep Vein Open Sodium Chloride (Saline Flush) 2.5 ml FLUSH ASDIRECTED PRN PRN Reason: Keep Vein Open Sodium Chloride (Saline Flush) 10 ml FLUSH ASDIRECTED PRN PRN Reason: Keep Vein Open Sodium Chloride (Saline Flush) 2.5 ml FLUSH ASDIRECTED PRN PRN Reason: Keep Vein Open - Plan Plan (Free Text/Narrative):: Patient is doing exceptionally well. Pain well managed and she is mobile. NG with minimal output. NG removed this morning. Soares to be removed as well. Pain: IV MS [employer] for now while increasing out of bed activity CV: Vitals stable overnight. Keep monitoring for now but if stable can D/C by end of day Pulm: Wean O2 with increased IS use and out of bed activity GI: NG out. Clear liquid diet. No advancing further until passing gas. Will move slow with this given the amount of inflammation. Renal: Soares out. Ok to D/C IVF if taking adequate PO ID: IV Zosyn Heme: Stable Px: protonix iv swithcing to omeprazole. Heparin sub q 5000 BID
--- NOTE | 2017-12-16 09:37 | PCM48HPAN ---
Post Anesthesia Note - EVALUATION WITHIN 48HRS OF ANESTHETIC Vital Signs in Normal Range: Yes Patient Participated in Evaluation: Yes Respiratory Function Stable: Yes Airway Patent: Yes Cardiovascular Function Stable: Yes Hydration Status Stable: Yes Pain Control Satisfactory: Yes Nausea and Vomiting Control Satisfactory: Yes Mental Status Recovered: Yes Pulse Rate: 80 Resp Rate: 19 Blood Pressure: 115/65
[2017-12-16] MEDS: Heparin Sodium 5,000 Units/ML Vial SUBCUT SCH ×2 (09:49→20:58)
[2017-12-16] MEDS ORDERED: Cyclobenzaprine 10 MG Tab PO PRN (16:57)
[2017-12-16] MEDS: Omeprazole 20 MG Cap.CR PO SCH (20:58)
[2017-12-17] MEDS: Piperacillin/Tazobactam 3.375 GM in Sodium Chloride 0.9% 50 ML IV SCH ×3 (00:01→15:30)
[2017-12-17 06:55] LABS: CHLORIDE,CL 104 mmol/L (98-107); SODIUM,NA 140 mmol/L (136-145)
[2017-12-17] MEDS: Levothyroxine 75 MCG Tab PO SCH (07:37)
[2017-12-17] MEDS: Heparin Sodium 5,000 Units/ML Vial SUBCUT SCH ×2 (08:51→20:55)
[2017-12-17] MEDS: Ondansetron 4 MG/2 ML SDV IVPUSH PRN (08:53)
[2017-12-17] MEDS ORDERED: Promethazine 25 MG/ML SDV IM PRN (09:07)
[2017-12-17] MEDS ORDERED: Scopolamine 1.5 MG Transdermal Patch TRDERM PRN (09:08)
--- NOTE | 2017-12-17 09:14 | PCM.SURGPN ---
- General Info Date of Service: 12/15/17 Date of Surgery/Procedure: 12/18/17 POD#: 2 Functional Status: Reports: Other (Pain well controlled. On 1 L nasal canula. Had nausea and small emesis this am. UOP adequate. No fevers or chills. Drain with increased serous output. Dressings with serous drainage. ) - Review of Systems General: Reports: No Symptoms Pulmonary: Reports: No Symptoms. Denies: Shortness of Breath, Pleuritic Chest Pain, Cough, Wheezing Cardiovascular: Reports: No Symptoms Gastrointestinal: Reports: Constipation, Nausea, Vomiting. Denies: Diarrhea, Difficulty Swallowing, Flatus 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: Reports: No Symptoms Musculoskeletal: Reports: No Symptoms Skin: Reports: No Symptoms - Patient Data Vitals - Most Recent: Last Vital Signs Temp 36.9 C 12/17/17 04:00 Pulse 84 12/17/17 04:00 Resp 18 12/17/17 04:00 BP 116/65 12/17/17 04:00 Pulse Ox 91 L 12/17/17 04:00 Weight - Most Recent: 91.127 kg I&O - Last 24 Hours: Intake & Output 12/16/17 12/17/17 12/17/17 22:59 06:59 14:59 Intake Total 1783 560 Output Total 1095 480 170 Balance 688 80 -170 Lab Results Last 24 Hrs: Laboratory Results - last 24 hr 12/17/17 12/17/17 Range/Units 05:45 05:45 WBC 7.21 (4.0-11.0) K/uL RBC 4.56 (4.30-5.90) M/uL Hgb 14.3 (12.0-16.0) g/dL Hct 44.3 (36.0-46.0) % MCV 97.1 (80.0-98.0) fL MCH 31.4 (27.0-32.0) pg MCHC 32.3 (31.0-37.0) g/dL RDW Std Deviation 45.7 (28.0-62.0) fl RDW Coeff of Rubi 13 (11.0-15.0) % Plt Count 194 (150-400) K/uL MPV 10.10 (7.40-12.00) fL Neut % (Auto) 80.3 H (48.0-80.0) % Lymph % (Auto) 11.5 L (16.0-40.0) % [place] % (Auto) 6.4 (0.0-15.0) % Eos % (Auto) 1.5 (0.0-7.0) % Baso % (Auto) 0.3 (0.0-1.5) % Neut # (Auto) 5.8 H (1.4-5.7) K/uL Lymph # (Auto) 0.8 (0.6-2.4) K/uL [place] # (Auto) 0.5 (0.0-0.8) K/uL Eos # (Auto) 0.1 (0.0-0.7) K/uL Baso # (Auto) 0.0 (0.0-0.1) K/uL Sodium 140 (136-145) mmol/L Potassium 3.7 (3.5-5.1) mmol/L Chloride 104 (98-107) mmol/L Carbon Dioxide 29.4 (21.0-32.0) mmol/L BUN 12 (7.0-18.0) mg/dL Creatinine 0.7 (0.6-1.0) mg/dL Est Cr Clr Drug Dosing 66.33 mL/min Estimated GFR (MDRD) > 60.0 ml/min Glucose 110 H (74-106) mg/dL Calcium 8.4 L (8.5-10.1) mg/dL Phosphorus 2.2 L (2.6-4.7) mg/dL Pito Results Last 24 Hrs: Microbiology 12/14/17 22:05 Urine Culture - Final Urine, Clean Catch MIXED JEFFERY >100,000 CFU/ML 12/14/17 21:30 Aerobic Blood Culture - Preliminary Blood - Venous - Lab Draw NO GROWTH AFTER 2 DAYS Anaerobic Blood Culture - Preliminary NO GROWTH AFTER 2 DAYS 12/14/17 21:20 Aerobic Blood Culture - Preliminary Blood - Venous NO GROWTH AFTER 2 DAYS Anaerobic Blood Culture - Preliminary NO GROWTH AFTER 2 DAYS Med Orders - Current: Current Medications Acetaminophen (Tylenol) 650 mg PO Q4H PRN PRN Reason: Fever Cyclobenzaprine HCl (Flexeril) 5 mg PO Q12HR PRN PRN Reason: Abdominal Pain Diphenhydramine HCl (Benadryl) 25 mg IVPUSH Q4H PRN PRN Reason: Itching Heparin Sodium (Porcine) (Heparin Sodium) 5,000 units SUBCUT Q12H [facility] Last Admin: 12/17/17 08:51 Dose: 5,000 units Sodium Chloride (Normal Saline) 500 mls @ 999 mls/hr IV STAT [facility] Last Admin: 12/14/17 21:50 Dose: 999 mls/hr Piperacillin Sod/Tazobactam (Sod 3.375 gm/ Sodium Chloride) 50 mls @ 100 mls/ hr IV Q8H [facility] Last Admin: 12/17/17 07:38 Dose: 100 mls/hr Ketorolac Tromethamine (Toradol) 10 mg PO Q6H [facility] Stop: 12/22/17 09:16 Levothyroxine Sodium (Levothyroxine) 75 mcg PO ACBREAKFAST [facility] Last Admin: 12/17/17 07:37 Dose: 75 mcg Morphine Sulfate (Morphine Medical Reviewer 30 Mg In 30 Ml) 30 mg IV CONTINUOUS AISHA; Protocol Last Admin: 12/17/17 04:20 Dose: 30 mg Omeprazole (Omeprazole) 20 mg PO BEDTIME [facility] Last Admin: 12/16/17 20:58 Dose: 20 mg Ondansetron HCl (Zofran) 4 mg IVPUSH Q6H PRN PRN Reason: Nausea/Vomiting Last Admin: 12/17/17 08:53 Dose: 4 mg Promethazine HCl (Phenergan) 25 mg IM Q6H PRN PRN Reason: Nausea Scopolamine (Transderm-Scop) 1.5 mg TRDERM Q72H PRN PRN Reason: Nausea Sodium Chloride (Saline Flush) 10 ml FLUSH ASDIRECTED PRN PRN Reason: Keep Vein Open Sodium Chloride (Saline Flush) 2.5 ml FLUSH ASDIRECTED PRN PRN Reason: Keep Vein Open Sodium Chloride (Saline Flush) 10 ml FLUSH ASDIRECTED PRN PRN Reason: Keep Vein Open Sodium Chloride (Saline Flush) 2.5 ml FLUSH ASDIRECTED PRN PRN Reason: Keep Vein Open Discontinued Medications Bupivacaine HCl (Marcaine 0.5%) Confirm Administered Dose 30 ml .ROUTE .STK-MED ONE Stop: 12/15/17 07:44 Cefazolin Sodium (Ancef) Confirm Administered Dose 1 gm .ROUTE .STK-MED ONE Stop: 12/15/17 07:44 Cyclobenzaprine HCl (Flexeril) 5 mg PO BID [facility] Last Admin: 12/16/17 08:27 Dose: 5 mg Dexamethasone (Dexamethasone) Confirm Administered Dose 20 mg .ROUTE .STK-MED ONE Stop: 12/15/17 09:01 Fentanyl (Sublimaze) Confirm Administered Dose 100 mcg .ROUTE .STK-MED ONE Stop: 12/15/17 09:00 Fentanyl (Sublimaze) Confirm Administered Dose 100 mcg .ROUTE .STK-MED ONE Stop: 12/15/17 10:51 Hydromorphone HCl (Dilaudid) 0.5 mg IVPUSH Q1H PRN PRN Reason: Pain (severe 7-10) Last Admin: 12/15/17 06:33 Dose: 0.5 mg Hydromorphone HCl (Dilaudid) Confirm Administered Dose 2 mg .ROUTE .STK-MED ONE Stop: 12/15/17 10:51 Lactated Ringer's (Ringers, Lactated) 1,000 mls [facility] Admin: 12/16/17 08:30 Dose: 125 mls/hr Piperacillin Sod/Tazobactam (Sod 3.375 gm/ Sodium Chloride) 50 mls @ 100 mls/ hr IV ONETIME ONE Stop: 12/15/17 00:15 Last Admin: 12/14/17 23:53 Dose: 100 mls/hr Lactated Ringer's (Ringers, Lactated) 1,000 mls @ 125 [facility] Last Admin: 12/16/17 01:01 Dose: 125 mls/hr Acetaminophen (Ofirmev) Confirm Administered Dose 100 mls @ as directed IV .STK- MED ONE Stop: 12/15/17 09:33 Magnesium Sulfate 2 gm/ Premix 50 mls @ 50 mls/hr IV ONETIME ONE Stop: 12/15/17 15:29 Last Admin: 12/15/17 19:25 Dose: 50 mls/hr Magnesium Sulfate (Magnesium Sulfate 2 Gm In Water 50 Ml) Confirm Administered Dose 50 mls @ as directed .ROUTE .STK-MED ONE Stop: 12/15/17 19:19 Last Admin: 12/15/17 19:25 Dose: Not Given Iopamidol (Isovue-370 (76%)) 100 ml IVPUSH ONETIME ONE Stop: 12/14/17 22:53 Last Admin: 12/14/17 22:53 Dose: 100 ml Ketorolac Tromethamine (Toradol) Confirm Administered Dose 30 mg .ROUTE .STK- MED ONE Stop: 12/15/17 10:44 Lidocaine (Xylocaine-Mpf 2%) Confirm Administered Dose 5 ml .ROUTE .STK-MED ONE Stop: 12/15/17 09:03 Midazolam HCl (Versed 1 Mg/Ml) Confirm Administered Dose 2 mg .ROUTE .STK-MED ONE Stop: 12/15/17 09:00 Morphine Sulfate (Morphine) 4 mg IVPUSH ONETIME ONE Stop: 12/14/17 22:26 Last Admin: 12/14/17 22:33 Dose: 4 mg Morphine Sulfate (Morphine Medical Reviewer 30 Mg In 30 Ml) 30 mg IV NOW STA; Protocol Stop: 12/15/17 12:59 Last Admin: 12/15/17 13:26 Dose: 30 mg Ondansetron HCl (Zofran) 4 mg IVPUSH ONETIME ONE Stop: 12/14/17 21:08 Last Admin: 12/14/17 21:50 Dose: 4 mg Ondansetron HCl (Zofran) Confirm Administered Dose 4 mg .ROUTE .ST-MED ONE Stop: 12/15/17 09:01 Pantoprazole Sodium (Protonix Iv) 40 mg IVPUSH DAILY [facility] Last Admin: 12/16/17 08:27 Dose: 40 mg Phenylephrine HCl (Phenylephrine In Ns 100 Mcg/Ml) Confirm Administered Dose 1 mg .ROUTE .STK-MED ONE Stop: 12/15/17 10:20 Propofol (Diprivan 20 Ml) Confirm Administered Dose 200 mg .ROUTE .STK-MED ONE Stop: 12/15/17 09:00 Rocuronium Fisher (Zemuron) Confirm Administered Dose 100 mg .ROUTE .STK-MED ONE Stop: 12/15/17 09:01 Succinylcholine Chloride (Quelicin) Confirm Administered Dose 200 mg .ROUTE .STK -MED ONE Stop: 12/15/17 09:01 Sugammadex Sodium (Bridion) Confirm Administered Dose 200 mg .ROUTE .STK-MED ONE Stop: 12/15/17 09:32 Sugammadex Sodium (Bridion) Confirm Administered Dose 200 mg .ROUTE .STK-MED ONE Stop: 12/15/17 12:20 - Exam Wound/Incisions: Healing Well, Drainage (serous) General: Alert, Oriented HEENT: Pupils Equal, Pupils Reactive Lungs: Clear to Auscultation, Normal Respiratory Effort Cardiovascular: Regular Rate, Regular Rhythm GI/Abdominal Exam: Soft, Non-Tender, No Distention, No Mass Extremities: Other (!+ edema in hands and feet) Skin: Warm, Dry, Intact Neurological: No New Focal Deficit Psy/Mental Status: Alert, Normal Affect, Normal Mood - Problem List & Annotations (1) Appendicitis with perforation SNOMED Code(s): 19489058 Code(s): K35.2 - ACUTE APPENDICITIS WITH GENERALIZED PERITONITIS Status: Acute Current Visit: Yes (2) Appendicitis, acute, with generalized peritonitis SNOMED Code(s): 68059216 Code(s): K35.2 - ACUTE APPENDICITIS WITH GENERALIZED PERITONITIS Status: Acute Current Visit: Yes - Problem List Review Problem List Initiated/Reviewed/Updated: Yes - My Orders Last 24 Hours: Active Orders 24 hr Category Date Time Status Transfer Patient (Change bed) [ADT] Routine ADT 12/16/17 16:48 Ordered Clear Liquid Diet [DIET] Diet 12/16/17 Lunch Active BMP [BASIC METABOLIC PANEL,BMP] [CHEM] AM Lab 12/18/17 05:11 Ordered BMP [BASIC METABOLIC PANEL,BMP] [CHEM] AM Lab 12/19/17 05:11 Ordered BMP [BASIC METABOLIC PANEL,BMP] [CHEM] AM Lab 12/20/17 05:11 Ordered CBC WITH AUTO DIFF [HEME] AM Lab 12/18/17 05:11 Ordered CBC WITH AUTO DIFF [HEME] AM Lab 12/19/17 05:11 Ordered CBC WITH AUTO DIFF [HEME] AM Lab 12/20/17 05:11 Ordered CBC WITH AUTO DIFF [HEME] AM Lab 12/21/17 05:11 Ordered MAGNESIUM [CHEM] AM Lab 12/18/17 05:11 Ordered MAGNESIUM [CHEM] AM Lab 12/19/17 05:11 Ordered MAGNESIUM [CHEM] AM Lab 12/20/17 05:11 Ordered MAGNESIUM [CHEM] AM Lab 12/21/17 05:11 Ordered MAGNESIUM [CHEM] AM Lab 12/22/17 05:11 Ordered PHOSPHORUS [CHEM] AM Lab 12/18/17 05:11 Ordered PHOSPHORUS [CHEM] AM Lab 12/19/17 05:11 Ordered PHOSPHORUS [CHEM] AM Lab 12/20/17 05:11 Ordered Cyclobenzaprine [Flexeril] Med 12/16/17 16:57 Active 5 mg PO Q12HR PRN Heparin Sodium Med 12/16/17 09:00 Active 5,000 units SUBCUT Q12H Ketorolac [Toradol] Med 12/17/17 09:15 Ordered 10 mg PO Q6H Levothyroxine Med 12/17/17 07:30 Active 75 mcg PO ACBREAKFAST Omeprazole Med 12/16/17 21:00 Active 20 mg PO BEDTIME Polyethylene Glycol 3350 [MiraLAX] Med 12/17/17 09:15 Ordered 17 gm PO DAILY Promethazine [Phenergan] Med 12/17/17 09:07 Ordered 25 mg IM Q6H PRN Scopolamine [Transderm-Scop] Med 12/17/17 09:08 Ordered 1.5 mg TRDERM Q72H PRN Remove Drain [Drain Removal] [OM.PC] Routine Oth 12/16/17 08:27 Ordered Medication Orders Acetaminophen (Tylenol) 650 mg PO Q4H PRN PRN Reason: Fever Cyclobenzaprine HCl (Flexeril) 5 mg PO Q12HR PRN PRN Reason: Abdominal Pain Diphenhydramine HCl (Benadryl) 25 mg IVPUSH Q4H PRN PRN Reason: Itching Heparin Sodium (Porcine) (Heparin Sodium) 5,000 units SUBCUT Q12H [facility] Last Admin: 12/17/17 08:51 Dose: 5,000 units Admin: 12/16/17 20:58 Dose: 5,000 units Admin: 12/16/17 09:49 Dose: 5,000 units Sodium Chloride (Normal Saline) 500 mls @ 999 mls/hr IV STAT [facility] Last Admin: 12/14/17 21:50 Dose: 999 mls/hr Piperacillin Sod/Tazobactam (Sod 3.375 gm/ Sodium Chloride) 50 mls @ 100 mls/ hr IV Q8H [facility] Last Admin: 12/17/17 07:38 Dose: 100 mls/hr Infusion: 12/17/17 00:31 Dose: 100 mls/hr Admin: 12/17/17 00:01 Dose: 100 mls/hr Infusion: 12/16/17 16:30 Dose: 100 mls/hr Admin: 12/16/17 16:00 Dose: 100 mls/hr Infusion: 12/16/17 08:54 Dose: 100 mls/hr Admin: 12/16/17 08:24 Dose: 100 mls/hr Infusion: 12/16/17 00:36 Dose: 100 mls/hr Admin: 12/16/17 00:06 Dose: 100 mls/hr Infusion: 12/15/17 18:50 Dose: 100 mls/hr Admin: 12/15/17 18:20 Dose: 100 mls/hr Infusion: 12/15/17 08:00 Dose: 100 mls/hr Admin: 12/15/17 07:30 Dose: 100 mls/hr Ketorolac Tromethamine (Toradol) 10 mg PO Q6H [facility]IS[facility] Stop: 12/22/17 09:16 Levothyroxine Sodium (Levothyroxine) 75 mcg PO ACBREAKFAST [facility] Last Admin: 12/17/17 07:37 Dose: 75 mcg Morphine Sulfate (Morphine Medical Reviewer 30 Mg In 30 Ml) 30 mg IV CONTINUOUS AISHA; Protocol Last Admin: 12/17/17 04:20 Dose: 30 mg Omeprazole (Omeprazole) 20 mg PO BEDTIME [facility] Last Admin: 12/16/17 20:58 Dose: 20 mg Ondansetron HCl (Zofran) 4 mg IVPUSH Q6H PRN PRN Reason: Nausea/Vomiting Last Admin: 12/17/17 08:53 Dose: 4 mg Promethazine HCl (Phenergan) 25 mg IM Q6H PRN PRN Reason: Nausea Scopolamine (Transderm-Scop) 1.5 mg TRDERM Q72H PRN PRN Reason: Nausea Sodium Chloride (Saline Flush) 10 ml FLUSH ASDIRECTED PRN PRN Reason: Keep Vein Open Sodium Chloride (Saline Flush) 2.5 ml FLUSH ASDIRECTED PRN PRN Reason: Keep Vein Open Sodium Chloride (Saline Flush) 10 ml FLUSH ASDIRECTED PRN PRN Reason: Keep Vein Open Sodium Chloride (Saline Flush) 2.5 ml FLUSH ASDIRECTED PRN PRN Reason: Keep Vein Open - Plan Plan (Free Text/Narrative):: Pain: Scheduled toradol and continue 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 CV/Pulm: Lungs sound clear on exam this morning. No need for lasix at this point. Continue IS use. Vitals stable. GI; Patient feels better after small emesis this morning. Does not feel distended. Encouraged her to go slow with her diet. IM phenergan, IV zosyn, transdermal scopalamine patch. She is third spacing fluids into her tissues which can be seen with the edema in her extremities, the increased serous drianage from her drain, and the increased serous drainage from her dressings. IVF were d/c yesterday due to good po intake. Will continue to hold off on IVF for now. If unable to tolerate any po today will turn back on. Drain to stay in. Dressings can be changed as needed. Renal: BUN/Cr normal. UOP adequate. No lasix at this time. ID: Neutrophil percentage is decreasing. Will transition to oral meds once able to tolerate po reliably and neutrophil percentage is within normal range. Heme: Stable Px: omeprazole and heparin.
[2017-12-17] MEDS: Polyethylene Glycol 3350 Powder 17 GM Packet PO SCH (10:22)
[2017-12-17] MEDS: Ketorolac 10 MG Tab PO SCH ×3 (10:22→20:56)
[2017-12-17] MEDS: Omeprazole 20 MG Cap.CR PO SCH (20:55)
[2017-12-18] MEDS: Piperacillin/Tazobactam 3.375 GM in Sodium Chloride 0.9% 50 ML IV SCH (00:14)
[2017-12-18] MEDS: Ketorolac 10 MG Tab PO SCH ×4 (03:59→21:51)
[2017-12-18 06:06] LABS: CHLORIDE,CL 104 mmol/L (98-107); SODIUM,NA 138 mmol/L (136-145)
[2017-12-18] MEDS: Levothyroxine 75 MCG Tab PO SCH (06:31)
[2017-12-18] MEDS ORDERED: Acetaminophen/oxyCODONE 325-5 MG Tab PO PRN (07:23)
[2017-12-18] MEDS ORDERED: Morphine 2 MG/ML Syringe IVPUSH PRN (07:23)
--- NOTE | 2017-12-18 07:33 | PCM.SURGPN ---
- General Info Date of Service: 12/18/17 Date of Surgery/Procedure: 12/15/17 POD#: 3 Functional Status: Reports: Pain Controlled, Tolerating Diet, Ambulating, Urinating, Incentive Spirometry. Denies: New Symptoms - Review of Systems General: Reports: No Symptoms Pulmonary: Reports: No Symptoms Cardiovascular: Reports: No Symptoms Gastrointestinal: Reports: No Symptoms Musculoskeletal: Reports: No Symptoms Skin: Reports: No Symptoms Neurological: Reports: No Symptoms - Patient Data Vitals - Most Recent: Last Vital Signs Temp 36.6 C 12/18/17 04:00 Pulse 79 12/18/17 04:00 Resp 18 12/18/17 04:00 BP 137/74 12/18/17 04:00 Pulse Ox 96 12/18/17 04:00 Weight - Most Recent: 91.127 kg I&O - Last 24 Hours: Intake & Output 12/17/17 12/18/17 12/18/17 22:59 06:59 14:59 Intake Total 710 500 Output Total 2580 220 Balance -1870 280 Lab Results Last 24 Hrs: Laboratory Results - last 24 hr 12/18/17 12/18/17 Range/Units 05:09 05:09 WBC 5.36 (4.0-11.0) K/uL RBC 4.48 (4.30-5.90) M/uL Hgb 13.5 (12.0-16.0) g/dL Hct 41.7 (36.0-46.0) % MCV 93.1 (80.0-98.0) fL MCH 30.1 (27.0-32.0) pg MCHC 32.4 (31.0-37.0) g/dL RDW Std Deviation 43.9 (28.0-62.0) fl RDW Coeff of Rubi 13 (11.0-15.0) % Plt Count 217 (150-400) K/uL MPV 9.40 (7.40-12.00) fL Neut % (Auto) 74.6 (48.0-80.0) % Lymph % (Auto) 14.0 L (16.0-40.0) % [place] % (Auto) 8.4 (0.0-15.0) % Eos % (Auto) 2.6 (0.0-7.0) % Baso % (Auto) 0.4 (0.0-1.5) % Neut # (Auto) 4.0 (1.4-5.7) K/uL Lymph # (Auto) 0.8 (0.6-2.4) K/uL [place] # (Auto) 0.5 (0.0-0.8) K/uL Eos # (Auto) 0.1 (0.0-0.7) K/uL Baso # (Auto) 0.0 (0.0-0.1) K/uL Nucleated RBC % 0.0 /100WBC Nucleated RBCs # 0 K/uL Sodium 138 (136-145) mmol/L Potassium 3.6 (3.5-5.1) mmol/L Chloride 104 (98-107) mmol/L Carbon Dioxide 29.3 (21.0-32.0) mmol/L BUN 11 (7.0-18.0) mg/dL Creatinine 0.7 (0.6-1.0) mg/dL Est Cr Clr Drug Dosing 66.33 mL/min Estimated GFR (MDRD) > 60.0 ml/min Glucose 128 H (74-106) mg/dL Calcium 8.4 L (8.5-10.1) mg/dL Phosphorus 3.5 (2.6-4.7) mg/dL Magnesium 2.0 (1.8-2.4) mg/dL Pito Results Last 24 Hrs: Microbiology 12/14/17 21:30 Aerobic Blood Culture - Preliminary Blood - Venous - Lab Draw NO GROWTH AFTER 3 DAYS Anaerobic Blood Culture - Preliminary NO GROWTH AFTER 3 DAYS 12/14/17 21:20 Aerobic Blood Culture - Preliminary Blood - Venous NO GROWTH AFTER 3 DAYS Anaerobic Blood Culture - Preliminary NO GROWTH AFTER 3 DAYS 12/14/17 22:05 Urine Culture - Final Urine, Clean Catch MIXED JEFFERY >100,000 CFU/ML Med Orders - Current: Current Medications Ciprofloxacin (Ciprofloxacin Hcl) 500 mg PO BID [facility] Cyclobenzaprine HCl (Flexeril) 5 mg PO Q12HR PRN PRN Reason: Abdominal Pain Diphenhydramine HCl (Benadryl) 25 mg IVPUSH Q4H PRN PRN Reason: Itching Heparin Sodium (Porcine) (Heparin Sodium) 5,000 units SUBCUT Q12H [facility] Last Admin: 12/17/17 20:55 Dose: 5,000 units Sodium Chloride (Normal Saline) 500 mls @ 999 mls/hr IV STAT [facility] Last Admin: 12/14/17 21:50 Dose: 999 mls/hr Ketorolac Tromethamine (Toradol) 10 mg PO Q6H [facility] Stop: 12/22/17 09:16 Last Admin: 12/18/17 03:59 Dose: 10 mg Levothyroxine Sodium (Levothyroxine) 75 mcg PO ACBREAKFAST [facility] Last Admin: 12/18/17 06:31 Dose: 75 mcg Metronidazole (Metronidazole) 250 mg PO Q6H [facility] Morphine Sulfate (Morphine) 2 mg IVPUSH Q1H PRN PRN Reason: Pain Omeprazole (Omeprazole) 20 mg PO BEDTIME [facility] Last Admin: 12/17/17 20:55 Dose: 20 mg Ondansetron HCl (Zofran) 4 mg IVPUSH Q6H PRN PRN Reason: Nausea/Vomiting Last Admin: 12/17/17 08:53 Dose: 4 mg Oxycodone/Acetaminophen (Percocet 325-5 Mg) 2 tab PO Q4H PRN PRN Reason: Pain Polyethylene Glycol (Miralax) 17 gm PO DAILY [facility] Last Admin: 12/17/17 10:22 Dose: 17 gm Promethazine HCl (Phenergan) 25 mg IM Q6H PRN PRN Reason: Nausea Scopolamine (Transderm-Scop) 1.5 mg TRDERM Q72H PRN PRN Reason: Nausea Senna/Docusate Sodium (Senokot-S) 1 each PO BEDTIME [facility] Sodium Chloride (Saline Flush) 10 ml FLUSH ASDIRECTED PRN PRN Reason: Keep Vein Open Sodium Chloride (Saline Flush) 2.5 ml FLUSH ASDIRECTED PRN PRN Reason: Keep Vein Open Sodium Chloride (Saline Flush) 10 ml FLUSH ASDIRECTED PRN PRN Reason: Keep Vein Open Sodium Chloride (Saline Flush) 2.5 ml FLUSH ASDIRECTED PRN PRN Reason: Keep Vein Open Discontinued Medications Acetaminophen (Tylenol) 650 mg PO Q4H PRN PRN Reason: Fever Bupivacaine HCl (Marcaine 0.5%) Confirm Administered Dose 30 ml .ROUTE .STK-MED ONE Stop: 12/15/17 07:44 Cefazolin Sodium (Ancef) Confirm Administered Dose 1 gm .ROUTE .STK-MED ONE Stop: 12/15/17 07:44 Cyclobenzaprine HCl (Flexeril) 5 mg PO BID [facility] Last Admin: 12/16/17 08:27 Dose: 5 mg Dexamethasone (Dexamethasone) Confirm Administered Dose 20 mg .ROUTE .STK-MED ONE Stop: 12/15/17 09:01 Fentanyl (Sublimaze) Confirm Administered Dose 100 mcg .ROUTE .STK-MED ONE Stop: 12/15/17 09:00 Fentanyl (Sublimaze) Confirm Administered Dose 100 mcg .ROUTE .STK-MED ONE Stop: 12/15/17 10:51 Hydromorphone HCl (Dilaudid) 0.5 mg IVPUSH Q1H PRN PRN Reason: Pain (severe 7-10) Last Admin: 12/15/17 06:33 Dose: 0.5 mg Hydromorphone HCl (Dilaudid) Confirm Administered Dose 2 mg .ROUTE .STK-MED ONE Stop: 12/15/17 10:51 Lactated Ringer's (Ringers, Lactated) 1,000 mls @ 125 mls/hr IV ASDIRECTED [facility] Last Admin: 12/16/17 08:30 Dose: 125 mls/hr Piperacillin Sod/Tazobactam (Sod 3.375 gm/ Sodium Chloride) 50 mls @ 100 mls/ hr IV ONETIME ONE Stop: 12/15/17 00:15 Last Admin: 12/14/17 23:53 Dose: 100 mls/hr Lactated Ringer's (Ringers, Lactated) 1,000 mls @ 125 mls/hr IV ASDIRECTED [facility] Last Admin: 12/16/17 01:01 Dose: 125 mls/hr Piperacillin Sod/Tazobactam (Sod 3.375 gm/ Sodium Chloride) 50 mls @ 100 mls/ hr IV Q8H [facility] Last Admin: 12/18/17 00:14 Dose: 100 mls/hr Acetaminophen (Ofirmev) Confirm Administered Dose 100 mls @ as directed IV .STK- MED ONE Stop: 12/15/17 09:33 Magnesium Sulfate 2 gm/ Premix 50 mls @ 50 mls/hr IV ONETIME ONE Stop: 12/15/17 15:29 Last Admin: 12/15/17 19:25 Dose: 50 mls/hr Magnesium Sulfate (Magnesium Sulfate 2 Gm In Water 50 Ml) Confirm Administered Dose 50 mls @ as directed .ROUTE .STK-MED ONE Stop: 12/15/17 19:19 Last Admin: 12/15/17 19:25 Dose: Not Given Iopamidol (Isovue-370 (76%)) 100 ml IVPUSH ONETIME ONE Stop: 12/14/17 22:53 Last Admin: 12/14/17 22:53 Dose: 100 ml Ketorolac Tromethamine (Toradol) Confirm Administered Dose 30 mg .ROUTE .STK- MED ONE Stop: 12/15/17 10:44 Lidocaine (Xylocaine-Mpf 2%) Confirm Administered Dose 5 ml .ROUTE .STK-MED ONE Stop: 12/15/17 09:03 Midazolam HCl (Versed 1 Mg/Ml) Confirm Administered Dose 2 mg .ROUTE .STK-MED ONE Stop: 12/15/17 09:00 Morphine Sulfate (Morphine) 4 mg IVPUSH ONETIME ONE Stop: 12/14/17 22:26 Last Admin: 12/14/17 22:33 Dose: 4 mg Morphine Sulfate (Morphine Film Color Tester 30 Mg In 30 Ml) 30 mg IV NOW STA; Protocol Stop: 12/15/17 12:59 Last Admin: 12/15/17 13:26 Dose: 30 mg Morphine Sulfate (Morphine Film [employer] Tester 30 Mg In 30 Ml) 30 mg IV CONTINUOUS AISHA; Protocol Last Admin: 12/17/17 04:20 Dose: 30 mg Ondansetron HCl (Zofran) 4 mg IVPUSH ONETIME ONE Stop: 12/14/17 21:08 Last Admin: 12/14/17 21:50 Dose: 4 mg Ondansetron HCl (Zofran) Confirm Administered Dose 4 mg .ROUTE .STK-MED ONE Stop: 12/15/17 09:01 Pantoprazole Sodium (Protonix Iv) 40 mg IVPUSH DAILY [facility] Last Admin: 12/16/17 08:27 Dose: 40 mg Phenylephrine HCl (Phenylephrine In Ns 100 Mcg/Ml) Confirm Administered Dose 1 mg .ROUTE .STK-MED ONE Stop: 12/15/17 10:20 Propofol (Diprivan 20 Ml) Confirm Administered Dose 200 mg .ROUTE .STK-MED ONE Stop: 12/15/17 09:00 Rocuronium [place] (Zemuron) Confirm Administered Dose 100 mg .ROUTE .STK-MED ONE Stop: 12/15/17 09:01 Succinylcholine Chloride (Quelicin) Confirm Administered Dose 200 mg .ROUTE .STK -MED ONE Stop: 12/15/17 09:01 Sugammadex Sodium (Bridion) Confirm Administered Dose 200 mg .ROUTE .STK-MED ONE Stop: 12/15/17 09:32 Sugammadex Sodium (Bridion) Confirm Administered Dose 200 mg .ROUTE .STK-MED ONE Stop: 12/15/17 12:20 - Exam Wound/Incisions: Healing Well, Dressing Dry and Intact General: Alert, Oriented HEENT: Pupils Equal, Pupils Reactive Lungs: Normal Respiratory Effort Cardiovascular: Regular Rate GI/Abdominal Exam: Soft, Non-Tender, No Distention, No Mass Extremities: Normal Inspection, Normal Range of Motion Skin: Warm, Dry, Intact Psy/Mental Status: Alert, Normal Affect, Normal Mood - Problem List & Annotations (1) Appendicitis with perforation SNOMED Code(s): 95136423 Code(s): K35.2 - ACUTE APPENDICITIS WITH GENERALIZED PERITONITIS Status: Acute Current Visit: Yes (2) Appendicitis, acute, with generalized peritonitis SNOMED Code(s): 12621880 Code(s): K35.2 - ACUTE APPENDICITIS WITH GENERALIZED PERITONITIS Status: Acute Current Visit: Yes - Problem List Review Problem List Initiated/Reviewed/Updated: Yes - My Orders Last 24 Hours: Active Orders 24 hr Category Date Time Status Full Liquid Diet [DIET] Diet 12/18/17 Lunch Ordered BMP [BASIC METABOLIC PANEL,BMP] [CHEM] AM Lab 12/19/17 05:11 Ordered BMP [BASIC METABOLIC PANEL,BMP] [CHEM] AM Lab 12/20/17 05:11 Ordered CBC WITH AUTO DIFF [HEME] AM Lab 12/19/17 05:11 Ordered CBC WITH AUTO DIFF [HEME] AM Lab 12/20/17 05:11 Ordered CBC WITH AUTO DIFF [HEME] AM Lab 12/21/17 05:11 Ordered MAGNESIUM [CHEM] AM Lab 12/19/17 05:11 Ordered MAGNESIUM [CHEM] AM Lab 12/20/17 05:11 Ordered MAGNESIUM [CHEM] AM Lab 12/21/17 05:11 Ordered MAGNESIUM [CHEM] AM Lab 12/22/17 05:11 Ordered PHOSPHORUS [CHEM] AM Lab 12/19/17 05:11 Ordered PHOSPHORUS [CHEM] AM Lab 12/20/17 05:11 Ordered Acetaminophen/oxyCODONE [Percocet 325-5 MG] Med 12/18/17 07:23 Ordered 2 tab PO Q4H PRN Ciprofloxacin [Ciprofloxacin HCl] Med 12/18/17 09:00 Ordered 500 mg PO BID Docusate Sodium/Sennosides [Senokot-S] Med 12/18/17 21:00 Ordered 1 each PO BEDTIME Ketorolac [Toradol] Med 12/17/17 09:15 Active 10 mg PO Q6H Levothyroxine Med 12/17/17 07:30 Active 75 mcg PO ACBREAKFAST Morphine Med 12/18/17 07:23 Ordered 2 mg IVPUSH Q1H PRN Polyethylene Glycol 3350 [MiraLAX] Med 12/17/17 09:15 Active 17 gm PO DAILY Promethazine [Phenergan] Med 12/17/17 09:07 Active 25 mg IM Q6H PRN Scopolamine [Transderm-Scop] Med 12/17/17 09:08 Active 1.5 mg TRDERM Q72H PRN metroNIDAZOLE Med 12/18/17 07:30 Ordered 250 mg PO Q6H Medication Orders Ciprofloxacin (Ciprofloxacin Hcl) 500 mg PO BID [facility] Cyclobenzaprine HCl (Flexeril) 5 mg PO Q12HR PRN PRN Reason: Abdominal Pain Diphenhydramine HCl (Benadryl) 25 mg IVPUSH Q4H PRN PRN Reason: Itching Heparin Sodium (Porcine) (Heparin Sodium) 5,000 units SUBCUT Q12H [facility] Last Admin: 12/17/17 20:55 Dose: 5,000 units Admin: 12/17/17 08:51 Dose: 5,000 units Admin: 12/16/17 20:58 Dose: 5,000 units Admin: 12/16/17 09:49 Dose: 5,000 units Sodium Chloride (Normal Saline) 500 mls @ 999 mls/hr IV STAT [facility] Last Admin: 12/14/17 21:50 Dose: 999 mls/hr Ketorolac Tromethamine (Toradol) 10 mg PO Q6H [facility] Stop: 12/22/17 09:16 Last Admin: 12/18/17 03:59 Dose: 10 mg Admin: 12/17/17 20:56 Dose: 10 mg Admin: 12/17/17 15:29 Dose: 10 mg Admin: 12/17/17 10:22 Dose: 10 mg Levothyroxine Sodium (Levothyroxine) 75 mcg PO ACBREAKFAST [facility] Last Admin: 12/18/17 06:31 Dose: 75 mcg Admin: 12/17/17 07:37 Dose: 75 mcg Metronidazole (Metronidazole) 250 mg PO Q6H [facility] Morphine Sulfate (Morphine) 2 mg IVPUSH Q1H PRN PRN Reason: Pain Omeprazole (Omeprazole) 20 mg PO BEDTIME [facility] Last Admin: 12/17/17 20:55 Dose: 20 mg Admin: 12/16/17 20:58 Dose: 20 mg Ondansetron HCl (Zofran) 4 mg IVPUSH Q6H PRN PRN Reason: Nausea/Vomiting Last Admin: 12/17/17 08:53 Dose: 4 mg Oxycodone/Acetaminophen (Percocet 325-5 Mg) 2 tab PO Q4H PRN PRN Reason: Pain Polyethylene Glycol (Miralax) 17 gm PO DAILY [facility] Last Admin: 12/17/17 10:22 Dose: 17 gm Promethazine HCl (Phenergan) 25 mg IM Q6H PRN PRN Reason: Nausea Scopolamine (Transderm-Scop) 1.5 mg TRDERM Q72H PRN PRN Reason: Nausea Senna/Docusate Sodium (Senokot-S) 1 each PO BEDTIME [facility] Sodium Chloride (Saline Flush) 10 ml FLUSH ASDIRECTED PRN PRN Reason: Keep Vein Open Sodium Chloride (Saline Flush) 2.5 ml FLUSH ASDIRECTED PRN PRN Reason: Keep Vein Open Sodium Chloride (Saline Flush) 10 ml FLUSH ASDIRECTED PRN PRN Reason: Keep Vein Open Sodium Chloride (Saline Flush) 2.5 ml FLUSH ASDIRECTED PRN PRN Reason: Keep Vein Open - Plan Plan (Free Text/Narrative):: Pain: D/C morphine [employer]. Percocet 325-5 mg 2 tab q 4hr prn pain. Toradol 10mg q 6hr. Flexeril prn CV/Pulm: Stable GI: Starting to pass flatus. Advance diet to full. Miralax, docusate and senna scheduled. Drain with 1 L serous fluid out. Will remove once output < 100ml/day Renal: UOP adequate. Net negative over last 24 hours. Edema improved. Mag phos normal ID: D/C zosyn since neutrophil % back to normal. Cipro/flagyl Heme: Stable Px: Heparin, omeprazole
[2017-12-18] MEDS: metroNIDAZOLE 250 MG Tab PO SCH ×3 (08:00→19:01)
[2017-12-18] MEDS: Ciprofloxacin 500 MG Tab PO SCH ×2 (08:00→21:52)
[2017-12-18] MEDS: Heparin Sodium 5,000 Units/ML Vial SUBCUT SCH ×2 (08:01→21:52)
[2017-12-18] MEDS: Polyethylene Glycol 3350 Powder 17 GM Packet PO SCH (08:02)
[2017-12-18] MEDS: Ondansetron 4 MG/2 ML SDV IVPUSH PRN (08:42)
[2017-12-18] MEDS ORDERED: Docusate Sodium/Sennosides Tab PO SCH (21:00)
[2017-12-18] MEDS: Omeprazole 20 MG Cap.CR PO SCH (21:52)
[2017-12-19] MEDS: metroNIDAZOLE 250 MG Tab PO SCH ×3 (01:04→13:36)
[2017-12-19] MEDS: Ketorolac 10 MG Tab PO SCH ×3 (03:08→15:17)
[2017-12-19 05:49] LABS: CHLORIDE,CL 103 mmol/L (98-107); SODIUM,NA 137 mmol/L (136-145)
[2017-12-19] MEDS: Levothyroxine 75 MCG Tab PO SCH (07:01)
[2017-12-19] MEDS: Ciprofloxacin 500 MG Tab PO SCH (08:23)
[2017-12-19] MEDS: Heparin Sodium 5,000 Units/ML Vial SUBCUT SCH (08:24)
[2017-12-19] MEDS: Polyethylene Glycol 3350 Powder 17 GM Packet PO SCH (08:31)
[2017-12-19 11:34] VITALS: BP 131/73
--- NOTE | 2017-12-19 15:33 | PCM.DCSUM1 ---
Discharge Summary - Hospital Course Free Text/Narrative:: Patient is a 72-year-old female who developed perforated appendicitis 2 years ago that was treated conservatively with antibiotics. She presented the emergency room with similar abdominal pain. CT scan of the abdomen revealed a fecalith at the proximal appendix and a dilated appearing appendix consistent with appendicitis. Her white blood count was 10,000 but she had a neutrophil percent of 87% On physical exam she had abdominal pain with rebound and guarding in the right lower quadrant. She was admitted for IV fluids and antibiotics. After she was adequately resuscitated she was taken to the OR for an appendectomy. This was first attempted laparoscopically but was unable to be completed safely in this manner due to severe inflammation around the base of the appendix. The case was converted to open. She was found to have a necrotic perforated base of the appendix associated with a large fecalith. The appendix was sharply excised from the cecum. The area was closed primarily with interrupted silk sutures and a small piece of fat was placed over the repair to buttress it. A drain was left in place. She was admitted to the ICU postoperatively given that she also had purulent peritonitis. She did well over the first 24 hours. She did not require any pressors. On postop day 2 the patient a small emesis in the morning. She is given clear liquids and had no further nausea or vomiting. Her drain put out approximately 1 L of serous fluid. That evening she started passing gas. The next morning she had another emesis but felt well afterwards. Her diet was advanced to full liquids later that day. Her vital signs remained stable and her abdominal exam was benign. This morning she feels well. She denies any nausea vomiting and had two large bowel movements. Her diet was advanced to regular. She doesn't have much of an appetite she was able to keep down solid food. She is taking good by mouth has made adequate urine. She is using Toradol only for pain which is controlling it well. Her drain output decreased significantly over the last 24 hours and still appeared serous. Her drain was removed at bedside and a dressing placed. She appears well is afternoon was cleared for discharge. - Discharge Data Discharge Date: 12/19/17 Discharge Disposition: Home, Self-Care 01 Condition: Fair - Discharge Diagnosis/Problem(s) (1) Appendicitis with perforation SNOMED Code(s): 32068016 ICD Code: K35.2 - ACUTE APPENDICITIS WITH GENERALIZED PERITONITIS Status: Acute Current Visit: Yes (2) Appendicitis, acute, with generalized peritonitis SNOMED Code(s): 53496581 ICD Code: K35.2 - ACUTE APPENDICITIS WITH GENERALIZED PERITONITIS Status: Acute Current Visit: Yes - Patient Summary/Data Operative Procedure(s) Performed: Laparoscopic possible open appendectomy - Patient Instructions Diet: Regular Diet as Tolerated Activity: No Lifting Over 20 Pounds (For 6 weeks after surgery), Rest and Relax Today Driving: Do Not Drive (For one week) Showering/Bathing: May Shower Notify Provider of: Fever, Increased Pain, Swelling and Redness, Drainage, Nausea and/or Vomiting Other/Special Instructions: Will discuss IVC filter removal and gallstone disease at your follow up appointment. - Discharge Plan *PRESCRIPTION DRUG MONITORING PROGRAM REVIEWED*: Yes *COPY OF PRESCRIPTION DRUG MONITORING REPORT IN PATIENT MILES: Yes Prescriptions/Med Rec: Ciprofloxacin HCl [Cipro] 500 mg PO BID #5 tablet Ketorolac [Toradol] 10 mg PO Q6H #20 tablet metroNIDAZOLE 250 mg PO Q6H #10 tablet Polyethylene Glycol 3350 [MiraLAX] 17 gm PO DAILY #7 packet Home Medications: Home Meds Levothyroxine 75 mcg PO ACBREAKFAST 07/19/15 [History] Ciprofloxacin HCl [Cipro] 500 mg PO BID #5 tablet 12/19/17 [Rx] Ketorolac [Toradol] 10 mg PO Q6H #20 tablet 12/19/17 [Rx] Polyethylene Glycol 3350 [MiraLAX] 17 gm PO DAILY #7 packet 12/19/17 [Rx] metroNIDAZOLE 250 mg PO Q6H #10 tablet 12/19/17 [Rx] Patient Handouts: Open Appendectomy Forms: ED Department Discharge Referrals: Janay Steward MD [Physician] - 12/26/17 10:30 am PCP,None [Primary Care Provider] - - Discharge Summary/Plan Comment DC Time >30 min.: No - General Info Functional Status: Reports: Pain Controlled, Tolerating Diet, Ambulating, Urinating, Incentive Spirometry - Review of Systems General: Reports: No Symptoms HEENT: Reports: No Symptoms Pulmonary: Reports: No Symptoms Cardiovascular: Reports: No Symptoms Gastrointestinal: Reports: Decreased Appetite, Flatus. Denies: Abdominal Pain, Constipation, Nausea, Vomiting 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: Reports: No Symptoms Musculoskeletal: Reports: No Symptoms - Patient Data Vitals - Most Recent: Last Vital Signs Temp 36.5 C 12/19/17 11:32 Pulse 81 12/19/17 11:32 Resp 18 12/19/17 11:32 BP 131/73 12/19/17 11:32 Pulse Ox 95 12/19/17 11:32 Weight - Most Recent: 91.127 kg I&O - Last 24 hours: Intake & Output 12/19/17 12/19/17 12/19/17 06:59 14:59 22:59 Intake Total 700 Output Total 985 Balance -285 Lab Results - Last 24 hrs: Laboratory Results - last 24 hr 12/19/17 12/19/17 Range/Units 05:12 05:12 WBC 4.94 (4.0-11.0) K/uL RBC 4.61 (4.30-5.90) M/uL Hgb 14.0 (12.0-16.0) g/dL Hct 41.9 (36.0-46.0) % MCV 90.9 (80.0-98.0) fL MCH 30.4 (27.0-32.0) pg MCHC 33.4 (31.0-37.0) g/dL RDW Std Deviation 42.2 (28.0-62.0) fl RDW Coeff of Rubi 13 (11.0-15.0) % Plt Count 227 (150-400) K/uL MPV 9.10 (7.40-12.00) fL Neut % (Auto) 68.5 (48.0-80.0) % Lymph % (Auto) 17.4 (16.0-40.0) % [place] % (Auto) 10.5 (0.0-15.0) % Eos % (Auto) 3.4 (0.0-7.0) % Baso % (Auto) 0.2 (0.0-1.5) % Neut # (Auto) 3.4 (1.4-5.7) K/uL Lymph # (Auto) 0.9 (0.6-2.4) K/uL [place] # (Auto) 0.5 (0.0-0.8) K/uL Eos # (Auto) 0.2 (0.0-0.7) K/uL Baso # (Auto) 0.0 (0.0-0.1) K/uL Nucleated RBC % 0.0 /100WBC Nucleated RBCs # 0 K/uL Sodium 137 (136-145) mmol/L Potassium 3.4 L (3.5-5.1) mmol/L Chloride 103 (98-107) mmol/L Carbon Dioxide 29.1 (21.0-32.0) mmol/L BUN 8 (7.0-18.0) mg/dL Creatinine 0.6 (0.6-1.0) mg/dL Est Cr Clr Drug Dosing 77.38 mL/min Estimated GFR (MDRD) > 60.0 ml/min Glucose 117 H (74-106) mg/dL Calcium 8.4 L (8.5-10.1) mg/dL Phosphorus 4.0 (2.6-4.7) mg/dL Magnesium 1.8 (1.8-2.4) mg/dL KARINA Results - Last 24 hrs: Microbiology 12/14/17 21:30 Aerobic Blood Culture - Preliminary Blood - Venous - Lab Draw NO GROWTH AFTER 4 DAYS Anaerobic Blood Culture - Preliminary NO GROWTH AFTER 4 DAYS 12/14/17 21:20 Aerobic Blood Culture - Preliminary Blood - Venous NO GROWTH AFTER 4 DAYS Anaerobic Blood Culture - Preliminary NO GROWTH AFTER 4 DAYS Med Orders - Current: Current Medications Ciprofloxacin (Ciprofloxacin Hcl) 500 mg PO BID [facility] Last Admin: 12/19/17 08:23 Dose: 500 mg Cyclobenzaprine HCl (Flexeril) 5 mg PO Q12HR PRN PRN Reason: Abdominal Pain Diphenhydramine HCl (Benadryl) 25 mg IVPUSH Q4H PRN PRN Reason: Itching Heparin Sodium (Porcine) (Heparin Sodium) 5,000 units SUBCUT Q12H [facility] Last Admin: 12/19/17 08:24 Dose: 5,000 units Sodium Chloride (Normal Saline) 500 mls @ 999 mls/hr IV STAT [facility] Last Admin: 12/14/17 21:50 Dose: 999 mls/hr Ketorolac Tromethamine (Toradol) 10 mg PO Q6H [facility] Stop: 12/22/17 09:16 Last Admin: 12/19/17 15:17 Dose: 10 mg Levothyroxine Sodium (Levothyroxine) 75 mcg PO ACBREAKFAST [facility] Last Admin: 12/19/17 07:01 Dose: 75 mcg Metronidazole (Metronidazole) 250 mg PO Q6H [facility] Last Admin: 12/19/17 13:36 Dose: 250 mg Morphine Sulfate (Morphine) 2 mg IVPUSH Q1H PRN PRN Reason: Pain Omeprazole (Omeprazole) 20 mg PO BEDTIME [facility] Last Admin: 12/18/17 21:52 Dose: 20 mg Ondansetron HCl (Zofran) 4 mg IVPUSH Q6H PRN PRN Reason: Nausea/Vomiting Last Admin: 12/18/17 08:42 Dose: 4 mg Oxycodone/Acetaminophen (Percocet 325-5 Mg) 2 tab PO Q4H PRN PRN Reason: Pain Polyethylene Glycol (Miralax) 17 gm PO DAILY [facility] Last Admin: 12/19/17 08:31 Dose: Not Given Promethazine HCl (Phenergan) 25 mg IM Q6H PRN PRN Reason: Nausea Scopolamine (Transderm-Scop) 1.5 mg TRDERM Q72H PRN PRN Reason: Nausea Senna/Docusate Sodium (Senokot-S) 1 each PO BEDTIME [facility] Last Admin: 12/18/17 22:32 Dose: Not Given Sodium Chloride (Saline Flush) 10 ml FLUSH ASDIRECTED PRN PRN Reason: Keep Vein Open Sodium Chloride (Saline Flush) 2.5 ml FLUSH ASDIRECTED PRN PRN Reason: Keep Vein Open Sodium Chloride (Saline Flush) 10 ml FLUSH ASDIRECTED PRN PRN Reason: Keep Vein Open Sodium Chloride (Saline Flush) 2.5 ml FLUSH ASDIRECTED PRN PRN Reason: Keep Vein Open Discontinued Medications Acetaminophen (Tylenol) 650 mg PO Q4H PRN PRN Reason: Fever Bupivacaine HCl (Marcaine 0.5%) Confirm Administered Dose 30 ml .ROUTE .STK-MED ONE Stop: 12/15/17 07:44 Cefazolin Sodium (Ancef) Confirm Administered Dose 1 gm .ROUTE .STK-MED ONE Stop: 12/15/17 07:44 Cyclobenzaprine HCl (Flexeril) 5 mg PO BID [facility] Last Admin: 12/16/17 08:27 Dose: 5 mg Dexamethasone (Dexamethasone) Confirm Administered Dose 20 mg .ROUTE .STK-MED ONE Stop: 12/15/17 09:01 Fentanyl (Sublimaze) Confirm Administered Dose 100 mcg .ROUTE .STK-MED ONE Stop: 12/15/17 09:00 Fentanyl (Sublimaze) Confirm Administered Dose 100 mcg .ROUTE .STK-MED ONE Stop: 12/15/17 10:51 Hydromorphone HCl (Dilaudid) 0.5 mg IVPUSH Q1H PRN PRN Reason: Pain (severe 7-10) Last Admin: 12/15/17 06:33 Dose: 0.5 mg Hydromorphone HCl (Dilaudid) Confirm Administered Dose 2 mg .ROUTE .STK-MED ONE Stop: 12/15/17 10:51 Lactated Ringer's (Ringers, Lactated) 1,000 mls @ 125 mls[facility] Last Admin: 12/16/17 08:30 Dose: 125 mls/hr Piperacillin Sod/Tazobactam (Sod 3.375 gm/ Sodium Chloride) 50 mls @ 100 mls/ hr IV ONETIME ONE Stop: 12/15/17 00:15 Last Admin: 12/14/17 23:53 Dose: 100 mls/hr Lactated Ringer's (Ringers, Lactated) 1,000 mls @ 125 mls/hr IV ASDIRECTED [facility] Last Admin: 12/16/17 01:01 Dose: 125 mls/hr Piperacillin Sod/Tazobactam (Sod 3.375 gm/ Sodium Chloride) 50 mls @ 100 mls/ hr IV Q8H [facility] Last Admin: 12/18/17 00:14 Dose: 100 mls/hr Acetaminophen (Ofirmev) Confirm Administered Dose 100 mls @ as directed IV .STK- MED ONE Stop: 12/15/17 09:33 Magnesium Sulfate 2 gm/ Premix 50 mls @ 50 mls/hr IV ONETIME ONE Stop: 12/15/17 15:29 Last Admin: 12/15/17 19:25 Dose: 50 mls/hr Magnesium Sulfate (Magnesium Sulfate 2 Gm In Water 50 Ml) Confirm Administered Dose 50 mls @ as directed .ROUTE .STK-MED ONE Stop: 12/15/17 19:19 Last Admin: 12/15/17 19:25 Dose: Not Given Influenza Virus Vaccine (Pharmacy To Dose - Influenza Vaccine) 1 each IM ONETIME ONE Stop: 12/18/17 14:11 Last Admin: 12/19/17 13:35 Dose: Not Given Iopamidol (Isovue-370 (76%)) 100 ml IVPUSH ONETIME ONE Stop: 12/14/17 22:53 Last Admin: 12/14/17 22:53 Dose: 100 ml Ketorolac Tromethamine (Toradol) Confirm Administered Dose 30 mg .ROUTE .STK- MED ONE Stop: 12/15/17 10:44 Lidocaine (Xylocaine-Mpf 2%) Confirm Administered Dose 5 ml .ROUTE .STK-MED ONE Stop: 12/15/17 09:03 Midazolam HCl (Versed 1 Mg/Ml) Confirm Administered Dose 2 mg .ROUTE .STK-MED ONE Stop: 12/15/17 09:00 Morphine Sulfate (Morphine) 4 mg IVPUSH ONETIME ONE Stop: 12/14/17 22:26 Last Admin: 12/14/17 22:33 Dose: 4 mg Morphine Sulfate (Morphine Photograph Developer 30 Mg In 30 Ml) 30 mg IV NOW STA; Protocol Stop: 12/15/17 12:59 Last Admin: 12/15/17 13:26 Dose: 30 mg Morphine Sulfate (Morphine Photograph Developer 30 Mg In 30 Ml) 30 mg IV CONTINUOUS AISHA; Protocol Last Admin: 12/17/17 04:20 Dose: 30 mg Ondansetron HCl (Zofran) 4 mg IVPUSH ONETIME ONE Stop: 12/14/17 21:08 Last Admin: 12/14/17 21:50 Dose: 4 mg Ondansetron HCl (Zofran) Confirm Administered Dose 4 mg .ROUTE .STK-MED ONE Stop: 12/15/17 09:01 Pantoprazole Sodium (Protonix Iv) 40 mg IVPUSH DAILY AISHA Last Admin: 12/16/17 08:27 Dose: 40 mg Phenylephrine HCl (Phenylephrine In Ns 100 Mcg/Ml) Confirm Administered Dose 1 mg .ROUTE .STK-MED ONE Stop: 12/15/17 10:20 Propofol (Diprivan 20 Ml) Confirm Administered Dose 200 mg .ROUTE .STK-MED ONE Stop: 12/15/17 09:00 Rocuronium [place] (Zemuron) Confirm Administered Dose 100 mg .ROUTE .STK-MED ONE Stop: 12/15/17 09:01 Succinylcholine Chloride (Quelicin) Confirm Administered Dose 200 mg .ROUTE .STK -MED ONE Stop: 12/15/17 09:01 Sugammadex Sodium (Bridion) Confirm Administered Dose 200 mg .ROUTE .STK-MED ONE Stop: 12/15/17 09:32 Sugammadex Sodium (Bridion) Confirm Administered Dose 200 mg .ROUTE .STK-MED ONE Stop: 12/15/17 12:20 - Exam General: Reports: Alert, Oriented HEENT: Reports: Pupils Equal, Pupils Reactive Lungs: Reports: Normal Respiratory Effort Cardiovascular: Reports: Regular Rate GI/Abdominal Exam: Soft, Non-Tender, No Distention, No Mass (Female) Exam: Normal External Exam Back Exam: Reports: Normal Inspection Skin: Reports: Warm, Dry, Intact Wound/Incisions: Reports: Healing Well, No Drainage Neurological: Reports: No New Focal Deficit
== END 2017-12-19 16:20 | disposition home or self-care (01) | DRG 339 ==
LOC: MW.ED 20:43 → MW.SDS 23:50 → MW.OB 23:50 → MW.SDS 12-15 08:08 → MW.ICU 12-15 14:27 → MW.MS 12-18 16:00
PROVIDERS: ADMIT Surgery; ATTEND Surgery
PROC: 0DTJ0ZZ Resection of Appendix, Open Approach (ICD-10-PCS; principal; 2017-12-15)
PROC: 0DJD4ZZ Inspection of Lower Intestinal Tract, Percutaneous Endoscopic Approach (ICD-10-PCS; 2017-12-15)
DX: K35.2 Acute appendicitis with generalized peritonitis (principal); K35.80 Unspecified acute appendicitis; K38.1 Appendicular concretions; D68.9 Coagulation defect, unspecified; K21.9 Gastro-esophageal reflux disease without esophagitis; E03.9 Hypothyroidism, unspecified; Z79.899 Other long term (current) drug therapy; Z86.718 Personal history of other venous thrombosis and embolism
CPT/HCPCS: 36415 ×2; 74177; 80048; 80053; 81001; 83690; 83735; 84100; 85025 ×2; 87040 ×2; 87086; 96361; 96365; 96368; 96375; 99285; A9270; C9113; J0131; J0330; J0690; J1100; J1170 ×2; J2270; J2274; J2370; J2405 ×2; J2543 ×3; J2704; J3010; J3475; J3490 ×3; J7040; J7050 ×3; J7120 ×3; Q9967; 85027; 90662; J1644; J1885; J2250